=== PATIENT | female | born 1975 | race Caucasian/White ===

== ENCOUNTER → 2018-05-05 17:23 | Outpatient (CLI) | payer OTHER, SELFPAY ==
--- NOTE | 2018-05-05 17:25 | BI_ITS ---
MAMMOGRAPHY - BILATERAL SCREENING REASON FOR EXAM: Female, 42 years old. Routine annual screening examination. PERTINENT HISTORY: Non-contributory. TECHNIQUE: Digital bilateral breast arun (3D mammographic acquisition) in the CC and MLO projections. 2-D mediolateral oblique (MLO) and craniocaudad (CC) views of both breasts were obtained. CAD: Full Field Digital Mammography with Computer Added Detection was performed. COMPARISON: None. Baseline examination. FINDINGS: Breast Composition: The breasts are extremely dense, which lowers the sensitivity of mammography. There are no dominant masses or suspicious calcifications. No other significant abnormalities are identified. BI/SCREENING MAMM (CAD), BILAT IMPRESSION: Negative screening mammogram. Yearly followup mammogram recommended. (A) ASSESSMENT CATEGORY: BIRADS Category 1: Negative. A letter regarding these results will be sent to the patient by the facility within 30 days. Approximately 10% of breast cancers are not detected by mammography. A normal mammogram should not delay biopsy of a clinically suspicious abnormality. [id number] Electronically Signed: Sean Haynes MD at 8:01 EDT Tel [phone], Service support ,
== END ==
PROVIDERS: Family Provider Family Medicine; PCP Family Medicine; Visit Provider Obstetrics & Gynecology Gynecology
DX: Z12.31 Encounter for screening mammogram for malignant neoplasm of breast (principal)
CPT/HCPCS: 77063; 77067

== ENCOUNTER → 2019-05-12 11:12 | Outpatient (CLI) | payer OTHER, SELFPAY ==
--- NOTE | 2019-05-12 11:16 | BI_ITS ---
MAMMOGRAPHY - BILATERAL SCREENING - CAD and KAYE IMAGES REASON FOR EXAM: Female, 43 years old. Routine annual screening examination. PERTINENT HISTORY: Non-contributory. TECHNIQUE: Digital examination. Mediolateral oblique (MLO) and craniocaudad (CC) views of both breasts were obtained. CAD: CAD was performed on this study. Kaye images were reviewed. COMPARISON: Mammogram dated 05/05/2018 FINDINGS: Breast Composition: The breasts are extremely dense, which lowers the sensitivity of mammography. There are no suspicious masses, suspicious cluster of microcalcifications, architectural distortion or secondary sign of malignancy identified in either breast. Focal fibroglandular densities are noted bilaterally. Stable focal fibroglandular densities are seen. No other significant abnormalities are identified. CAD and Kaye were reviewed. BI/SCREEN MAMM (CAD) W/KAYE BILAT IMPRESSION: Stable bilateral screening mammogram. ASSESSMENT CATEGORY: BIRADS Category 2: Benign. A letter regarding these results will be sent to the patient by the facility within 30 days. FOLLOW UP RECOMMENDATION: Yearly follow up mammogram recommended. (A) Approximately 10% of breast cancers are not detected by mammography. A normal mammogram should not delay biopsy of a clinically suspicious abnormality. [id number] Electronically Signed: Samantha Kessler DO at 13:00 EDT Tel , Service support ,
== END ==
PROVIDERS: Family Provider Family Medicine; PCP Family Medicine; Referring Provider Obstetrics & Gynecology Gynecology; Visit Provider Obstetrics & Gynecology Gynecology
DX: Z12.31 Encounter for screening mammogram for malignant neoplasm of breast (principal)
CPT/HCPCS: 77063; 77067

== ENCOUNTER → 2020-02-29 15:55 | Outpatient (CLI) | payer OTHER, SELFPAY ==
[2020-02-29 18:06] LABS: T4 Free Direct 0.93 ng/dL (0.76-1.46); Thyroid Stim Hormone (TSH) 1.74 uIU/mL (0.358-3.74)
[2020-03-04 16:22] LABS: Thyroglobulin Antibody < 1.0 IU/mL (0.0-0.9); Thyroid Peroxidase AB < 9 IU/mL (0-34)
== END ==
PROVIDERS: PCP Family Medicine; Referring Provider Family Medicine; Visit Provider Family Medicine
DX: E01.0 Iodine-deficiency related diffuse (endemic) goiter (principal)
CPT/HCPCS: 36415; 84439; 84443; 86376; 86800

== ENCOUNTER → 2020-03-14 09:53 | Outpatient (CLI) | payer OTHER, SELFPAY ==
--- NOTE | 2020-03-14 09:55 | US_ITS ---
STUDY: THYROID ULTRASOUND REASON FOR EXAM: Female, 44 years old. THYROMEGALY TECHNIQUE: Ultrasound evaluation of the thyroid was performed with real-time and static almonte-scale imaging. COMPARISON: None. FINDINGS: RIGHT LOBE: The right lobe of the thyroid gland is enlarged and measures 5.4 cm x 1.9 cm x 1.1 cm. There is a homogeneous echotexture. There is a 2 mm x 3 mm x 2 mm colloid cyst in the upper pole. LEFT LOBE: The left lobe of the thyroid gland measures 4.7 cm x 1.6 cm x 1.1 cm. There is a homogeneous echotexture. There is a 2 mm x 2 mm x 1 mm colloid cyst in the lower pole. ISTHMUS: The isthmus measures 3.0 mm. The regional lymph nodes are normal. US/Thyroid IMPRESSION: Enlarged right lobe of the thyroid. Small colloid cysts seen in both lobes. Electronically Signed: Sean Haynes, at 15:21 EDT , Service support ,
== END ==
PROVIDERS: PCP Family Medicine; Referring Provider Family Medicine; Visit Provider Family Medicine
DX: E01.0 Iodine-deficiency related diffuse (endemic) goiter (principal)
CPT/HCPCS: 76536

== ENCOUNTER → 2020-06-12 08:10 | Outpatient (CLI) | payer OTHER, SELFPAY ==
--- NOTE | 2020-06-12 08:13 | BI_ITS ---
MAMMOGRAPHY - BILATERAL SCREENING REASON FOR EXAM: Female, 45 years old. Routine annual screening examination. PERTINENT HISTORY: Non-contributory. TECHNIQUE: Digital bilateral breast kaye (3D mammographic acquisition) in the CC and MLO projections. 2-D mediolateral oblique (MLO) and craniocaudad (CC) views of both breasts were obtained. CAD: Full Field Digital Mammography with Computer Added Detection was performed. COMPARISON: Comparison is made with prior study dated 05/12/2019 and 05/05/2018. FINDINGS: Breast Composition: The breasts are extremely dense, which lowers the sensitivity of mammography. There are no dominant masses or suspicious calcifications. No other significant abnormalities are identified. There has been no significant change since the prior study. BI/SCREEN MAMM (CAD) W/KAYE BILAT IMPRESSION: Stable bilateral screening mammogram. Yearly follow-up mammogram recommended. (A) ASSESSMENT CATEGORY: BIRADS Category 1: Negative. A letter regarding these results will be sent to the patient by the facility within 30 days. Approximately 10% of breast cancers are not detected by mammography. A normal mammogram should not delay biopsy of a clinically suspicious abnormality. [id number] Electronically Signed: Sean Haynes, at 9:34 EDT , Service support ,
== END ==
PROVIDERS: PCP Family Medicine; Referring Provider Family Medicine; Visit Provider Family Medicine
DX: Z12.31 Encounter for screening mammogram for malignant neoplasm of breast (principal)
CPT/HCPCS: 77063; 77067

== ENCOUNTER → 2021-06-17 11:49 | Outpatient (CLI) | payer OTHER, SELFPAY ==
--- NOTE | 2021-06-17 11:52 | BI_ITS ---
MAMMOGRAPHY - BILATERAL SCREENING REASON FOR EXAM: Female, 46 years old. Routine annual screening examination. PERTINENT HISTORY: Non-contributory. TECHNIQUE: Digital bilateral breast akye (3D mammographic acquisition) in the CC and MLO projections. 2-D mediolateral oblique (MLO) and craniocaudad (CC) views of both breasts were obtained. CAD: Full Field Digital Mammography with Computer Added Detection was performed. COMPARISON: Comparison is made with prior study dated 06/12/2020 and 05/12/2019. FINDINGS: Breast Composition: The breasts are extremely dense, which lowers the sensitivity of mammography. There are no dominant masses or suspicious calcifications. No other significant abnormalities are identified. There has been no significant change since the prior study. BI/SCRN MAMM (CAD)W/KAYE BILAT IMPRESSION: Stable bilateral screening mammogram. Yearly follow-up mammogram recommended. (A) ASSESSMENT CATEGORY: BIRADS Category 1: Negative. A letter regarding these results will be sent to the patient by the facility within 30 days. Approximately 10% of breast cancers are not detected by mammography. A normal mammogram should not delay biopsy of a clinically suspicious abnormality. [id number] Electronically Signed: Sean Haynes MD at 13:03 EDT , Service support ,
== END ==
PROVIDERS: PCP Family Medicine; Referring Provider Obstetrics & Gynecology Gynecology; Visit Provider Obstetrics & Gynecology Gynecology
DX: Z12.31 Encounter for screening mammogram for malignant neoplasm of breast (principal)
CPT/HCPCS: 77063; 77067

== ENCOUNTER → 2022-06-30 | Outpatient (CLI) | payer OTHER, SELFPAY ==
--- NOTE | 2022-06-30 12:22 | BI_ITS ---
MAMMOGRAPHY - BILATERAL SCREENING REASON FOR EXAM: Female, 47 years old. Routine annual screening examination. PERTINENT HISTORY: Non-contributory. TECHNIQUE: Digital bilateral breast kaye (3D mammographic acquisition) in the CC and MLO projections. 2-D mediolateral oblique (MLO) and craniocaudad (CC) views of both breasts were obtained. CAD: Full Field Digital Mammography with Computer Added Detection was performed. COMPARISON: Comparison is made with prior study 06/17/2021 and 06/12/2020. FINDINGS: Breast Composition: The breasts are extremely dense, which lowers the sensitivity of mammography. There are no dominant masses or suspicious calcifications. No other significant abnormalities are identified. There has been no significant change since the prior study. BI/SCRN MAMM (CAD)W/KAYE BILAT IMPRESSION: Stable bilateral screening mammogram. Yearly follow-up mammogram recommended. (A) ASSESSMENT CATEGORY: BIRADS Category 1: Negative. A letter regarding these results will be sent to the patient by the facility within 30 days. Approximately 10% of breast cancers are not detected by mammography. A normal mammogram should not delay biopsy of a clinically suspicious abnormality. [id number] Electronically Signed: Sean Haynes MD at 13:48 EST ,
== END | disposition home or self-care (01) ==
LOC: OPBI 12:20
PROVIDERS: PCP Family Medicine; Referring Provider Obstetrics & Gynecology Gynecology; Visit Provider Obstetrics & Gynecology Gynecology
DX: Z12.31 Encounter for screening mammogram for malignant neoplasm of breast (principal)
CPT/HCPCS: 77063; 77067

== ENCOUNTER → 2023-07-02 | Outpatient (CLI) | payer OTHER, SELFPAY ==
--- NOTE | 2023-07-02 07:53 | BI_ITS ---
MAMMOGRAPHY - BILATERAL SCREENING REASON FOR EXAM: Female, 48 years old. Routine annual screening examination. PERTINENT HISTORY: Non-contributory. TECHNIQUE: Digital bilateral breast kaye (3D mammographic acquisition) in the CC and MLO projections. 2-D mediolateral oblique (MLO) and craniocaudad (CC) views of both breasts were obtained. CAD: Full Field Digital Mammography with Computer Added Detection was performed. COMPARISON: Comparison is made with prior study dated June 30, 2022 and June 17, 2021. FINDINGS: Breast Composition: The breasts are extremely dense, which lowers the sensitivity of mammography. There are no dominant masses or suspicious calcifications. No other significant abnormalities are identified. There has been no significant change since the prior study. BI/SCRN MAMM (CAD)W/KAYE BILAT IMPRESSION: Stable bilateral screening mammogram. Yearly follow-up mammogram recommended. (A) ASSESSMENT CATEGORY: BIRADS Category 1: Negative. A letter regarding these results will be sent to the patient by the facility within 30 days. Approximately 10% of breast cancers are not detected by mammography. A normal mammogram should not delay biopsy of a clinically suspicious abnormality. [id number] Electronically Signed: Sean Haynes MD at 9:55 EST ,
== END | disposition home or self-care (01) ==
LOC: OPBI 07:51
PROVIDERS: PCP Family Medicine; Referring Provider Obstetrics & Gynecology Gynecology; Visit Provider Obstetrics & Gynecology Gynecology
DX: Z12.31 Encounter for screening mammogram for malignant neoplasm of breast (principal)
CPT/HCPCS: 77063; 77067

== ENCOUNTER → 2024-02-04 | Outpatient (CLI) | payer OTHER, SELFPAY ==
[2024-02-04 08:40] LABS: Cholesterol 207 mg/dL (200); High Density Lipoprotein 67 mg/dL; Triglycerides 137 mg/dL; Very Low Density Lipoprotein 27 mg/dL (5-40)
== END | disposition home or self-care (01) ==
LOC: LAB 07:41
PROVIDERS: PCP Family Medicine; Referring Provider Family Medicine; Visit Provider Family Medicine
DX: E78.1 Pure hyperglyceridemia (principal)
CPT/HCPCS: 36415; 80061

== ENCOUNTER → 2024-07-07 | Outpatient (CLI) | payer OTHER, SELFPAY | END | disposition home or self-care (01) | LOC: OPBI 13:12 | PROVIDERS: PCP Family Medicine; Referring Provider Family Medicine; Visit Provider Family Medicine | DX: Z12.31 Encounter for screening mammogram for malignant neoplasm of breast (principal) | CPT/HCPCS: 77063; 77067 ==

== ENCOUNTER → 2025-03-14 | Outpatient (CLI) | payer OTHER, SELFPAY ==
--- OUTSIDE RECORDS SUMMARY | 2025-03-15 11:49 | XMS RPT_ITS | CCD ---
Author Organization [facility] Care Team Providers Care Visual Manager Name Role Phone Austin TAPIAThao Jessy Unavailable Now Nurse Unavailable Unavailable Now Nurse Unavailable Unavailable Now Nurse Unavailable Unavailable Assessment, Health Risk Referring Unavaila ble Assessment, Health Risk Attending Unavaila ble Janet Klein Primary Care Unavailable Janet Klein Primary Care Unavailable Janet Klein Referring Unavailable Janet Klein Attending Unavailable Janet Klein Primary Care Unavailable Janet Klein Referring Unavailable Janet Klein Attending Unavailable JANET KLEIN MD Primary Care Physician [phone] JANET KLEIN MD Primary Care Unavailable BRITTANI PRASAD MD Attending Unavailable Medications Current Medications Medication Drug Class(es) Dates Sig (Normalized) Sig (Original) Multivitamin preparation (1 source) Start: 12-17-2020 take 1 tablet by mouth once daily Multivitamin Dose = 1 tab(s), Oral, Daily, 0 Refill(s) Start Date: 12/17/20 Status: Ordered Completed/Discontinued Medications Medication Drug Class(es) Dates Sig (Normalized) Sig (Original) azithromycin 250 mg oral tablet (4 sources) Macrolide Antimicrobial Start: 12-24-2016 AZITHROMYCIN 250 MG TABS 2 tablets on day 1, then 1 tablet daily on days 2 through 5 AZITHROMYCIN [id number] Khurram BETTENCOURT benzonatate 200 mg oral capsule (4 sources) Non-narcotic Antitussive Start: 12-24-2016 BENZONATATE 200 MG CAPS 1 capsule 3 times a day as needed for cough BENZONATATE [id number] Khurram BETTENCOURT {24 (drospirenone 3 MG / Ethinyl Estradiol 0.02 MG Oral Tablet) / 4 (Inert Ingredients 1 MG Oral Tablet) } Pack [Adeola 28 Day] (2 sources) Progestin, Estrogen Start: 07-25-2024 take 1 tablet by mouth once daily Adeola 3 mg-0.02 mg oral tablet Dose = 1 tab(s), Oral, Daily, # 84 tab(s), 4 Refill(s), Pharmacy: [facility], Well woman exam Screening for cervical cancer, 139, cm, 07/25/24 9:45:00 EST, Height, kg, 07/25/24 9:45:00 EST, Dosing Weight Start Date: 07/25/24 Status: Ordered Start: 06-08-2023 take 1 tablet by felipe th once daily Adeola 3 mg-0.02 mg oral tablet Dose = 1 tab(s), Oral, Daily, # 84 tab(s), 3 Refill(s), Pharmacy: [facility], 172, cm, 04/26/23 10:02:00 EDT, Height, kg, 04/26/23 10:02:00 EDT, Dosing Weight Start Date: 06/08/23 Status: Ordered NORETHIN-ETH ESTRAD-FE BIPHAS (2 sources) Estrogen Start: 12-24-2016 LO LOESTRIN FE 1 MG-10 MCG / 10 MCG TABS as directed NORETHIN-ETH ESTRAD-FE BIPHAS [id number] Khurram BETTENCOURT NORETHIN-ETH ESTRAD-FE BIPHAS (2 sources) Estrogen Start: 12-24-2016 LO LOESTRIN FE 1 MG-10 MCG / 10 MCG TABS as directed NORETHIN-ETH ESTRAD-FE BIPHAS [id number] Khurram BETTENCOURT Problems Active Problems Problem Classification Problem Date Documented Da te Episodic/Chronic Disorders of lipid metabolism (1 source) Pure hyperglyceridemia ; Translations: [Pure hyperglyceridemia ] Onset: 02-09-2024 Chronic Menopausal disorders (3 sources) Premature ovarian failure; Translations: [Other primary ovarian failure] Onset: 07-25-2024 02-02-2022 Chronic Other screening for suspected conditions (not mental disorders or infectious disease) (3 sources) Encounter for screening mammogram for malignant neoplasm of breast; Translations: [Encounter for screening for malignant neoplasm of cervix] Onset: 07-17-2024 Episodic Viral infection (2 sources) Disease caused by 2019-nCoV; Translations: [COVID-19] 12-14-2021 Episodic Past or Other Problems Problem Classification Problem Date Documented Da te Episodic/Chronic Chronic obstructive pulmonary disease and bronchiectasis (4 sources) Bronchitis; Translations: [Bronchitis, not specified as acute or chronic] Onset: 12-24-2016 12-24-2016 Episodic Other upper respiratory infections (4 sources) Pharyngitis; Translations: [Acute pharyngitis, unspecified] Onset: 12-24-2016 12-24-2016 Episodic Results Test Name Value Interpretation Reference Range Facility [facility] Cytology Reporton 2023 Histologic Aide Cytology Report . Pathology Reports Accession: Collected Date/Time: Received Date/Time: Pathologist: [id number] 07/25/2024 10:33 EST 07/25/2024 18:00 EST Histologic Aide Cytology Report SPECIMEN: Specimen Description: Liquid Prep w/ HPV Specimen: Cervical/Endocervical Screening or Diagnostic: Screening RELEVANT HISTORY: LMP: oligomenorrhea on OCPS SPECIMEN ADEQUACY: SATISFACTORY FOR EVALUATION Endocervical/Transform ational zone component absent/insufficient INTERPRETATION/RESULTS : NEGATIVE FOR INTRAEPITHELIAL LESION OR MALIGNANCY HIGH RISK HPV TESTING: Event Code Result HPV Interp See Interp HPVN HPV Interp Text: High Risk HPV Typing: NEGATIVE HPV types 16, 18, 31, 33, 35, 39, 45, 51, 52, 56, 58, 59, 66 and 68 DNA were undetectable or below the pre-set threshold. The yared High-Risk HPV DNA Test is not intended for use as a screening device for Pap normal women under age 30 and is not intended to substitute for regular Pap screening. The yared High-Risk HPV DNA Test is designed to augment existing methods for the detection of cervical disease and should be used in conjunction with clinical information derived from other diagnostic and screening tests, physical examinations and full medical history in accordance with appropriate patient management procedures. NOTE: A negative result does not preclude the presence of HPV infection because results depend on adequate specimen collection, absence of inhibitors and sufficient DNA to be detected. As of: 07/28/24 14:40 EST COMMENT: This Pap Test was successfully processed and evaluated with the assistance of the [employer] ThinPrep Test Imaging System. Pathology Reports Accession: Collected Date/Time: Received Date/Time: Pathologist: [id number] 07/25/2024 10:33 EST 07/25/2024 18:00 EST Electronically Signed by Pathology report verified by [facility] Screened by: [place] Electronically signed by Helga HORTA (ASCP) Sign-Out Date: 07/28/2024 14:40 Performing Lab: [facility], [address] [place] [address] Pathology Dept Disclaimer The Pap test is a screening test for cervical cancer. As evidenced by published data, it is subject to both inherent false negative and false positive results. Your patient's results should be interpreted in context with pertinent clinical history including gynecological examination. Normal [facility] HPVon 07-28-2024 HPV Interp Normal See Interp HPVN [facility] Comment on above: Order Comment: Order placed by AP_HPV_ORDER rule from [id number] Result Comment: High Risk HPV Typing: NEGATIVE HPV types 16, 18, 31, 33, 35, 39, 45, 51, 52, 56, 58, 59, 66 and 68 DNA were undetectable or below the pre-set threshold. The yared High-Risk HPV DNA Test is not intended for use as a screening device for Pap normal women under age 30 and is not intended to substitute for regular Pap screening. The yared High-Risk HPV DNA Test is designed to augment existing methods for the detection of cervical disease and should be used in conjunction with clinical information derived from other diagnostic and screening tests, physical examinations and full medical history in accordance with appropriate patient management procedures. NOTE: A negative result does not preclude the presence of HPV infection because results depend on adequate specimen collection, absence of inhibitors and sufficient DNA to be detected. See Interp HPVN Performed By: #### H PV #### [place] [address] HPV Source Cervix Normal [facility] Comment on above: Order Comment: Order placed by AP_HPV_ORDER rule from [id number] Performed By: #### H PV #### [place] [address] LABORATORYOrdered By: Sommer Galvan on 07-25-2024 HPV Interp High Risk HPV Typing : NEGATIVEHPV types 16, 18, 31, 33, 35, 39, 45, 51, 52, 56, 58, 59, 66 and 68 DNA wereundetectable or below the pre-set threshold.The yared High-Risk HPV DNA Test is not intended for use as a screening device forPap normal women under age 30 and is not intended to substitute for regular Papscreening.The yared High-Risk HPV DNA Test is designed to augment existing methods for thedetection of cervical disease and should be used in conjunction with clinicalinformation derived from other diagnostic and screening tests, physical examinationsand full medical history in accordance with appropriate patient managementprocedures.N OTE: A negative result does not preclude the presence of HPV infection because resultsdepend on adequate specimen collection, absence of inhibitors and sufficientDNA to be detected. Normal See Interp HPVN Auto Viro/Sero SS Specimen source Nom (Unsp spec) Cervix (07/25/24 10:33 AM) Normal AH Auto Viro/Sero SS SCRN MAMM (CAD)W/KAYE BILATo n 07-07-2024 SCRN MAMM (CAD)W/KAYE BILAT [facility] [address] [place] [address] [id number] SCRN MAMM (CAD)W/KAYE BILAT MR#: [id number] Acct: [id number] Name: BALDOMERO ARREOLA Rep #: [id number] : 1975 F 49 From: Sean gu MD PCP: Dr. Janet Klein MD Status: [facility] Study: SCRN MAMM (CAD)W/KAYE BILAT Date of Exam: 06/17 10/09 Exam# [id number] Ordering Dr: Janet Klein MD [id number] MAMMOGRAPHY - BILATERAL SCREENING REASON FOR EXAM: Female, 49 years old. Routine annual screening examination. PERTINENT HISTORY: Non-contributory. TECHNIQUE: Digital bilateral breast kaye (3D mammographic acquisition) in the CC and MLO projections. 2-D mediolateral oblique (MLO) and craniocaudad (CC) views of both breasts were obtained. CAD: Full Field Digital Mammography with Computer Added Detection was performed. COMPARISON: Comparison is made with prior study dated July 02, 2023 and June 30, 2022. FINDINGS: Breast Composition: The breasts are extremely dense, which lowers the sensitivity of mammography. There are no dominant masses or suspicious calcifications. No other significant abnormalities are identified. There has been no significant change since the prior study. BI/SCRN MAMM (CAD)W/KAYE BILAT IMPRESSION: Stable bilateral screening mammogram. Yearly follow-up mammogram recommended. (A) ASSESSMENT CATEGORY: BIRADS Category 1: Negative. A letter regarding these results will be sent to the patient by the facility within 30 days. Approximately 10% of breast cancers are not detected by mammography. A normal mammogram should not delay biopsy of a clinically suspicious abnormality. [id number] Electronically Signed: Sean Haynes MD at 14:20 EST , CC: Dr. Janet Klein MD Smutter: Signed Normal [facility] Lipid Profileon 02-04-2024 Cholesterol [Mass/Vol] 207 mg/dL High 200 [facility] Comment on above: Order Comment: Order Date: 01/28/24 Order Info: [id number] - LIPID Result Comment: <200 mg/dL Desirable 200-240 mg/dL Borderline >240 mg/dL High Risk Performed By: #### L 500.4100 #### [facility] [place], [address] Cholesterol in HDL [Mass/Vol] 67 mg/dL Normal [facility] Comment on above: Order Comment: Order Date: 01/28/24 Order Info: [id number] - LIPID Result Comment: The drugs N-Acetylcysteine and Metamizole may falsely depress this assay. Reference Range HDL <40 mg/dL Low HDL Cholesterol HDL >or= 60 mg/dL High HDL Cholesterol Performed By: #### L 500.4100 #### [facility] [address] [place], [address] Cholesterol in LDL [Mass/Vol] 113 mg/dL Normal 0-130 [facility] Comment on above: Order Comment: Order Date: 01/28/24 Order Info: [id number] - LIPID Performed By: #### L 500.4100 #### [facility] [address] [place], [address] Cholesterol in VLDL [Mass/Vol] 27 mg/dL Normal 5-40 [facility] Comment on above: Order Comment: Order Date: 01/28/24 Order Info: [id number] - LIPID Performed By: #### L 500.4100 #### [facility] [address] [place], [address] Triglyceride [Mass/Vol] 137 mg/dL Normal [facility] Comment on above: Order Comment: Order Date: 01/28/24 Order Info: [id number] - LIPID Result Comment: The drugs N-Acetylcysteine and Metamizole may falsely depress this assay. Serum Triglycerides Reference Interval Normal <150 mg/dL Borderline high 150 - 199 mg/dL High 200 - 499 mg/dL Very High > or = 500 mg/dL Performed By: #### L 500.4100 #### [facility] [address] [place], [address] CBC, Employeeon 01-26-2024 Absolute Lymph 1.70 X10 3/uL Normal 0.83-4.51 [facility] Comment on above: Performed By: #### L 500.2900, L100.0200, L400.0100 #### [facility] [address] [place], [address] Absolute Neut 2.7 X10 3/uL Normal 2.0-7.7 [facility] Comment on above: Performed By: #### L 500.2900, L100.0200, L400.0100 #### [facility] [address] [place], [address] Basophils/100 WBC (Bld) 0.8 % Normal 0-1 [facility] Comment on above: Performed By: #### L 500.2900, L100.0200, L400.0100 #### [facility] [address] [place], [address] Eosinophils/100 WBC (Bld) 3.9 % Normal 0-5 [facility] Comment on above: Performed By: #### L 500.2900, L100.0200, L400.0100 #### [facility] [address] [place], [address] Erythrocyte distribution width (RBC) [Ratio] 11.8 % Normal 11.6-14.6 [facility] Comment on above: Performed By: #### L 500.2900, L100.0200, L400.0100 #### [facility] [address] [place], [address] Hematocrit (Bld) [Volume fraction] 38.2 % Normal 37-47 [facility] Comment on above: Performed By: #### L 500.2900, L100.0200, L400.0100 #### [facility] [address] [place], [address] Hemoglobin (Bld) [Mass/Vol] 12.6 g/dL Normal 12.0-15.0 [facility] Comment on above: Performed By: #### L 500.2900, L100.0200, L400.0100 #### [facility] [address] [place], [address] Lymphocytes/100 WBC (Bld) 32.9 % Normal 19-41 [facility] Comment on above: Performed By: #### L 500.2900, L100.0200, L400.0100 #### [facility] [address] [place], [address] MCH (RBC) [Entitic mass] 31.3 pg Normal 27.0-32.0 [facility] Comment on above: Performed By: #### L 500.2900, L100.0200, L400.0100 #### [facility] [address] [place], [address] MCHC (RBC) [Mass/Vol] 33.0 g/dL Normal 32-36 [facility] Comment on above: Performed By: #### L 500.2900, L100.0200, L400.0100 #### [facility] [address] [place], [address] MCV (RBC) [Entitic vol] 95.0 fL Normal 81-99 [facility] Comment on above: Performed By: #### L 500.2900, L100.0200, L400.0100 #### [facility] [address] [place], [address] Monocytes/100 WBC (Bld) 11.0 % High 0-10 [facility] Comment on above: Performed By: #### L 500.2900, L100.0200, L400.0100 #### [facility] [address] [place], [address] Neutrophils/100 WBC (Bld) 51.2 % Normal 47-70 [facility] Comment on above: Performed By: #### L 500.2900, L100.0200, L400.0100 #### [facility] [address] [place], [address] NRBC # 0.00 10 3/uL Normal 0-5 [facility] Comment on above: Performed By: #### L 500.2900, L100.0200, L400.0100 #### [facility] [address] [place], [address] Nucleated RBC (Bld) [#/Vol] 0 10*3/uL Normal 0-5 [facility] Comment on above: Performed By: #### L 500.2900, L100.0200, L400.0100 #### [facility] [address] [place], [address] Platelet mean volume (Bld) [Entitic vol] 11.0 fL Normal 6.2-12.0 [facility] Comment on above: Performed By: #### L 500.2900, L100.0200, L400.0100 #### [facility] [address] [place], [address] Platelets (Bld) [#/Vol] 229 10*3/uL Normal 150-450 [facility] Comment on above: Performed By: #### L 500.2900, L100.0200, L400.0100 #### [facility] [address] [place], [address] RBC (Bld) [#/Vol] 4.02 10*6/uL Low 4.2-5.4 [facility] Comment on above: Performed By: #### L 500.2900, L100.0200, L400.0100 #### [facility] [address] [place], [address] RDW SD 40.8 fl Normal 35.1-43.9 [facility] Comment on above: Performed By: #### L 500.2900, L100.0200, L400.0100 #### [facility] [address] [place], [address] WBC (Bld) [#/Vol] 5.2 10*3/uL Normal 4.4-11.0 [facility] Comment on above: Performed By: #### L 500.2900, L100.0200, L400.0100 #### [facility] [address] [place], [address] Employee Profileon 4 Albumin [Mass/Vol] 3.5 g/dL Normal 3.2-5.0 [facility] Comment on above: Performed By: #### L 500.2900, L100.0200, L400.0100 #### [facility] [address] [place], [address] Albumin/Globulin [Mass ratio] 1.0 {ratio} Normal 0.9-2.4 [facility] Comment on above: Performed By: #### L 500.2900, L100.0200, L400.0100 #### [facility] [address] [place], [address] ALK P 133 U/L High 45-117 [facility] Comment on above: Performed By: #### L 500.2900, L100.0200, L400.0100 #### [facility] [address] [place], [address] ALT [Catalytic activity/Vol] 22 U/L Normal 13-56 [facility] Comment on above: Performed By: #### L 500.2900, L100.0200, L400.0100 #### [facility] [address] [place], [address] AST [Catalytic activity/Vol] 27 U/L Normal 15-37 [facility] Comment on above: Performed By: #### L 500.2900, L100.0200, L400.0100 #### [facility] [address] [place], [address] Bilirubin [Mass/Vol] 0.20 mg/dL Normal 0.20-1.00 [facility] Comment on above: Result Comment: For patients on eltrombopag therapy, use of Dimension Mchenry TBIL is not recommended. Performed By: #### L 500.2900, L100.0200, L400.0100 #### [facility] [address] [place], [address] Bilirubin.direct [Mass/Vol] 0.08 mg/dL Normal 0.00-0.30 [facility] Comment on above: Performed By: #### L 500.2900, L100.0200, L400.0100 #### [facility] [address] [place], [address] BUN/CRE 14.3 RATIO Normal 10-20 [facility] Comment on above: Performed By: #### L 500.2900, L100.0200, L400.0100 #### [facility] [address] [place], [address] CA,Total 9.0 mg/dL Normal 8.5-10.1 [facility] Comment on above: Performed By: #### L 500.2900, L100.0200, L400.0100 #### [facility] [address] [place], [address] Chloride [Moles/Vol] 107 mmol/L Normal 98-107 [facility] Comment on above: Performed By: #### L 500.2900, L100.0200, L400.0100 #### [facility] [address] [place], [address] CHOL:HDL 6.30 Normal [facility] Comment on above: Performed By: #### L 500.2900, L100.0200, L400.0100 #### [facility] [address] [place], [address] Cholesterol [Mass/Vol] 252 mg/dL High 200 [facility] Comment on above: Result Comment: <200 mg/dL Desirable 200-240 mg/dL Borderline >240 mg/dL High Risk Performed By: #### L 500.2900, L100.0200, L400.0100 #### [facility] [address] [place], [address] Cholesterol in HDL [Mass/Vol] 40 mg/dL Normal [facility] Comment on above: Result Comment: The drugs N-Acetylcysteine and Metamizole may falsely depress this assay. Reference Range HDL <40 mg/dL Low HDL Cholesterol HDL >or= 60 mg/dL High HDL Cholesterol Performed By: #### L 500.2900, L100.0200, L400.0100 #### [facility] [address] [place], [address] CO2 [Moles/Vol] 25.0 mmol/L Normal 21.0-32.0 [facility] Comment on above: Performed By: #### L 500.2900, L100.0200, L400.0100 #### [facility] [address] [place], [address] Creatinine [Mass/Vol] 0.84 mg/dL Normal 0.55-1.02 [facility] Comment on above: Result Comment: The validity of the calculated GFR GFRAA in patients over 70 years has not been determined. Clinical correlation is essential. Performed By: #### L 500.2900, L100.0200, L400.0100 #### [facility] [address] [place], [address] EST GFR - AA 94 mL/min Normal >60 [facility] Comment on above: Result Comment: Afri can Algerian GFR Calc Performed By: #### L 500.2900, L100.0200, L400.0100 #### [facility] [address] [place], [address] GAP 7 Normal 5-15 [facility] Comment on above: Performed By: #### L 500.2900, L100.0200, L400.0100 #### [facility] [address] [place], [address] GFR/1.73 sq M.predicted among non-blacks MDRD (S/P/Bld) [Vol rate/Area] 78 mL/min/{1.73_m2} Normal >60 [facility] Comment on above: Result Comment: Non- GFR Calc Performed By: #### L 500.2900, L100.0200, L400.0100 #### [facility] [address] [place], [address] Globulin (S) [Mass/Vol] 3.4 g/dL Normal 2.2-4.2 [facility] Comment on above: Performed By: #### L 500.2900, L100.0200, L400.0100 #### [facility] [address] [place], [address] Glucose [Mass/Vol] 101 mg/dL Normal 74-106 [facility] Comment on above: Result Comment: Fast ing Glucose result from 100 to 125 mg/dL suggests IMPAIRED HOMEOSTASIS per A.D.A. criteria. Performed By: #### L 500.2900, L100.0200, L400.0100 #### [facility] [address] [place], [address] LDH 203 U/L Normal 84-246 [facility] Comment on above: Performed By: #### L 500.2900, L100.0200, L400.0100 #### [facility] [address] [place], [address] LDL TNP Normal 0-130 [facility] Comment on above: Performed By: #### L 500.2900, L100.0200, L400.0100 #### [facility] [address] [place], [address] Phosphate [Mass/Vol] 3.5 mg/dL Normal 2.5-4.9 [facility] Comment on above: Performed By: #### L 500.2900, L100.0200, L400.0100 #### [facility] [address] [place], [address] Potassium [Moles/Vol] 3.8 mmol/L Normal 3.5-5.1 [facility] Comment on above: Performed By: #### L 500.2900, L100.0200, L400.0100 #### [facility] Laboratory [address] [place], [address] Sodium [Moles/Vol] 139 mmol/L Normal 136-145 [facility] Comment on above: Performed By: #### L 500.2900, L100.0200, L400.0100 #### [facility] [address] [place], [address] T PROT 6.9 g/dL Normal 6.4-8.2 [facility] Comment on above: Performed By: #### L 500.2900, L100.0200, L400.0100 #### [facility] [address] [place], [address] Triglyceride [Mass/Vol] 489 mg/dL High [facility] Comment on above: Result Comment: The drugs N-Acetylcysteine and Metamizole may falsely depress this assay. TRIGLYCERIDE IS GREATER THAN 400 mg/dL. LDL RESULT IS INVALID AND WILL NOT BE REPORTED. Serum Triglycerides Reference Interval Normal <150 mg/dL Borderline high 150 - 199 mg/dL High 200 - 499 mg/dL Very High > or = 500 mg/dL Performed By: #### L 500.2900, L100.0200, L400.0100 #### [facility] [address] [place], [address] Urea nitrogen [Mass/Vol] 12 mg/dL Normal 7-18 [facility] Comment on above: Performed By: #### L 500.2900, L100.0200, L400.0100 #### [facility] Laboratory [address] [place], [address] URIC 4.8 mg/dL Normal 2.6-6.0 [facility] Comment on above: Result Comment: The drugs N-Acetylcysteine and Metamizole may falsely depress this assay. Performed By: #### L 500.2900, L100.0200, L400.0100 #### [facility] [address] [place], [address] VLDL TNP Normal 5-40 [facility] Comment on above: Performed By: #### L 500.2900, L100.0200, L400.0100 #### [facility] [address] [place], [address] Urinalysis, Employeeon 01-25 BILIRUBIN URINE Negative Normal Negative [facility] Comment on above: Performed By: #### L 500.2900, L100.0200, L400.0100 #### [facility] [address] [place], [address] Clarity (U) Clear Normal Clear [facility] Comment on above: Performed By: #### L 500.2900, L100.0200, L400.0100 #### [facility] [address] [place], [address] Color (U) Yellow Normal Yellow [facility] Comment on above: Performed By: #### L 500.2900, L100.0200, L400.0100 #### [facility] [address] [place], [address] GLUCOSE, UR Normal Normal Normal [facility] Comment on above: Performed By: #### L 500.2900, L100.0200, L400.0100 #### [facility] [address] [place], [address] KETONE UR Negative Normal Negative [facility] Comment on above: Performed By: #### L 500.2900, L100.0200, L400.0100 #### [facility] [address] [place], [address] LEUK ESTERASE 25 /ul Abnormal Negative [facility] Comment on above: Performed By: #### L 500.2900, L100.0200, L400.0100 #### [facility] [address] [place], [address] Nitrite Ql (U) Negative Normal Negative [facility] Comment on above: Performed By: #### L 500.2900, L100.0200, L400.0100 #### [facility] [address] [place], [address] OCCULT BLOOD-UR 25 /ul Abnormal Negative [facility] Comment on above: Performed By: #### L 500.2900, L100.0200, L400.0100 #### [facility] [address] [place], [address] pH UR 6.0 Normal 5.0 - 8.0 [facility] Comment on above: Performed By: #### L 500.2900, L100.0200, L400.0100 #### [facility] [address] [place], [address] PROT DIPSTX 100 mg/dl Abnormal Negative [facility] Comment on above: Performed By: #### L 500.2900, L100.0200, L400.0100 #### [facility] [address] [place], [address] SP.GR. DIPSTX 1.020 Normal 1.002-1.030 [facility] Comment on above: Performed By: #### L 500.2900, L100.0200, L400.0100 #### [facility] [address] [place], [address] UROBILI Normal Normal Normal [facility] Comment on above: Performed By: #### L 500.2900, L100.0200, L400.0100 #### [facility] [place], [address] HPVon 05-11-2019 HPV Interp Normal See Interp HPVN [facility] ([place]) Comment on above: Order Comment: Order placed by AP_HPV_ORDER rule from [id number] Result Comment: High Risk HPV Typing: NEGATIVE HPV types 16, 18, 31, 33, 35, 39, 45, 51, 52, 56, 58, 59, 66 and 68 DNA were undetectable or below the pre-set threshold. The yared High-Risk HPV DNA Test is not intended for use as a screening device for Pap normal women under age 30 and is not intended to substitute for regular Pap screening. The yared High-Risk HPV DNA Test is designed to augment existing methods for the detection of cervical disease and should be used in conjunction with clinical information derived from other diagnostic and screening tests, physical examinations and full medical history in accordance with appropriate patient management procedures. NOTE: A negative result does not preclude the presence of HPV infection because results depend on adequate specimen collection, absence of inhibitors and sufficient DNA to be detected. See [facility] HPVN Performed By: #### H PV #### [place] [address] HPV Source Cervix Normal [facility] ([place]) Comment on above: Order Comment: Order placed by AP_HPV_ORDER rule from [id number] Performed By: #### H PV #### [place] [id number] [facility] Cytology Reporton 2018 [facility] Cytology Report . Pathology Reports Accession: Collected Date/Time: Received Date/Time: Pathologist: [id number] 05/05/2019 12:35 EDT 05/05/2019 18:00 EDT [facility] Report SPECIMEN: Specimen Description: Liquid Prep w/ HPV Specimen: Cervical/Endocervical Screening or Diagnostic: Screening RELEVANT HISTORY: LMP: 01-20-17 Control: Yes [id number] SPECIMEN ADEQUACY: SATISFACTORY FOR EVALUATION ENDOCERVICAL/TRANSFORM ATIONAL ZONE COMPONENT ABSENT/INSUFFICIENT INTERPRETATION/RESULTS : NEGATIVE FOR INTRAEPITHELIAL LESION OR MALIGNANCY ADJUNCTIVE TESTING: HIGH RISK HPV DNA TESTING ORDERED, REPORT TO FOLLOW UNDER SEPARATE COVER COMMENT: This Pap Test was successfully processed and evaluated with the assistance of the [employer] Test Imaging System. Electronically Signed by Pathology report verified by [facility] Screened by: KK Electronically signed by Tatyana HORTA (ASCP) Sign-Out Date: 05/10/2019 11:36 Performing Lab: [facility], [address] [place] [address] Disclaimer The Pap test is a screening test for cervical cancer. As evidenced by published data, it is subject to both inherent false negative and false positive results. Your patient's results should be interpreted in context with pertinent clinical history including gynecological examination. Normal [facility] ([place]) Comment on above: Performed By: #### G YCR #### [place] [address] Microbiology: Culture, R/O S trep Aon 12-28-[address] [facility] Work Phone: Microbiology: (P) Culture, R /O Strep Aon 12-25-2016 GE use only - for [employer] import when terms are not otherwise specified . Invalid Interpretation Code [facility] Work Phone: Office Visit: UC: Bronchitis , pharyngitison 12-24-2016 Documentation of current medications (procedure) Done Invalid Interpretation Code [facility] Work Phone: Protein mass conc Done [facility] Work Phone: Tobacco smoking status NHIS Never [facility] Work Phone: Tobacco smoking status NHIS Never smoker [facility] Work Phone: Tobacco use HS Never smoker Invalid Interpretation Code [facility] Work Phone: Vital Signs Date Time Vital Sign Value Performing Clinician Nalini presley 12-24-2016 14:37-0400 BMI (Body Mass Index) 20.2 kg/m2 Thao Avila LPN [facility] Work Phone: 12-24-2016 14:37-0400 Body Temperature 98.6 [degF] Thao Avila LPN [facility] Work Phone: 12-24-2016 14:37-0400 BP Diastolic 76 mm[Hg] Thao Avila LPN [facility] Work Phone: 12-24-2016 14:37-0400 BP Systolic 108 mm[Hg] Thao Avila LPN [facility] Work Phone: 12-24-2016 14:37-0400 Height 170.18 cm Thao Avila LPN [facility] Work Phone: 12-24-2016 14:37-0400 Pulse (Heart Rate) 97 /min Thao Avila LPN [facility] Work Phone: 12-24-2016 14:37-0400 Pulse Oximetry 98 % Thao Avila LPN [facility] Work Phone: 12-24-2016 14:37-0400 Respiratory Rate 12 /min Thao Avila LPN [facility] Work Phone: 12-24-2016 14:37-0400 Weight 58.51 kg Thao Avila LPN [facility] Work Phone: Encounters Encounter Date Encounter Type Care Provider Facility Start: 07-25-2024 End: 07-29-2024 ambulatory JANET KLEIN MD Facility:[facility] Start: 07-25-2024 End: 07-29-2024 Outreach Lab BRITTANI PRASAD MD [facility] Start: 07-07-2024 End: 07-07-2024 ambulatory Janet Klein Facility:[facility] Start: 02-04-2024 End: 02-04-2024 ambulatory Janet Klein Facility:[facility] Start: 01-26-2024 ambulatory Health Risk Assessment Facility:[facility] Start: 07-02-2023 End: 07-02-2023 ambulatory [facility] Work Phone: Start: 07-02-2023 End: 07-02-2023 Patient encounter procedure [facility] Work Phone: Start: 06-30-2022 End: 06-30-2022 ambulatory [facility] Work Phone: Start: 06-30-2022 End: 06-30-2022 Patient encounter procedure [facility] Procedures Date Procedure Procedure Detail Performing Clinician Start: 07-02-2023 Screening mammography Start: 06-30-2022 Screening mammography Start: 12-24-2016 End: 12-24-2016 [facility] streptococcus group a Khurram BETTENCOURT Work Phone: Start: 12-24-2016 End: 12-24-2016 Rapid strep test Khurram BETTENCOURT Work Phone: section BRITTANI Bloom MD Ligation of fallopian tube A ALEXANDRA PRASAD MD Plan of Treatment Date Care Activity Detail Author Start: 12-24-2016 End: 12-24-2016 Appointment Appointment [facility] Work Phone: Start: 12-24-2016 End: 12-24-2016 Streptococcus.beta-hemol ytic [Presence] in Throat by Organism specific culture *Culture, R/O Strep A Swab [facility] Work Phone: Patient Education ACUTE%20BRONCHITIS [facility] Work Phone: Immunizations Immunization Date Immunization Notes Care Provider Karen snyder 06-03-2023 influenza, injectabl e, quadrivalent, preservative free [facility] 05-18-2022 influenza, injectabl e, quadrivalent, preservative free [facility] 05-18-2022 influenza, seasonal, injectable [facility] Work Phone: 06-27-2021 Covid (Moderna) [facility] 05-21-2021 influenza, injectabl e, quadrivalent, preservative free [facility] 05-21-2021 influenza, seasonal, injectable [facility] Work Phone: 09-18-2020 Covid (Moderna) [facility] 08-21-2020 Covid (Moderna) [facility] 05-14-2020 influenza, injectabl e, quadrivalent, preservative free [facility] 05-14-2020 influenza, seasonal, injectable [facility] Work Phone: 05-11-2019 influenza, injectabl e, quadrivalent, preservative free [facility] 05-11-2019 influenza, seasonal, [facility] Work Phone: 05-30-2018 influenza, injectabl e, quadrivalent, preservative free [facility] 05-30-2018 influenza, seasonal, injectable [facility] Work Phone: 05-12-2017 influenza, injectabl e, quadrivalent, preservative free [facility] 05-12-2017 influenza, seasonal, [facility] Work Phone: 05-15-2016 influenza, injectabl e, quadrivalent, preservative free [facility] 05-15-2016 influenza, seasonal, injectable [facility] Work Phone: 05-16-2015 influenza, injectabl e, quadrivalent, preservative free [facility] 05-16-2015 influenza, seasonal, injectable [facility] Work Phone: 05-16-2014 influenza, injectabl e, quadrivalent, preservative free [facility] 05-16-2014 influenza, seasonal, injectable [facility] Work Phone: 06-15-2013 Influenza virus vaccine [facility] Payers Date Payer Category Payer Unknown [id number] 2024 Self-pay [id number] 2016 Unknown [id number] 1975 Unknown [id number] [id number] Unknown [id number] [id number] [id number] Unknown [id number] [id number] [id number] Unknown [id number] 2.16.8 [id number] Social History Date Type Detail [facility] Work Phone: Start: 1975 Sex Assigned At Female [facility] Start: 12-16-2020 Tobacco smoking status Never s moked tobacco (finding) [facility] Clinical Notes 07-28-2024 Note Date & Type Note Facility 07-28-2024 Note This Pap Test was successfully processed and evaluated with the assistance of the [employer] ThinPrep Test Imaging System. [facility] 07-28-2024 Note This Pap Test was successfully processed and evaluated with the assistance of the [employer] Test Imaging System. [facility] 07-28-2024 Note This Pap Test was successfully processed and evaluated with the assistance of the [employer] Test Imaging System. [facility] 07-28-2024 Note This Pap Test was successfully processed and evaluated with the assistance of the [employer] Test Imaging System. [facility] 07-28-2024 Note This Pap Test was successfully processed and evaluated with the assistance of the [employer] Test Imaging System. [facility] 07-28-2024 Note This Pap Test was successfully processed and evaluated with the assistance of the [employer] Test [facility] System. [facility] 07-28-2024 Note This Pap Test was successfully processed and evaluated with the assistance of the [employer] Test Imaging System. [facility] 07-28-2024 Note This Pap Test was successfully processed and evaluated with the assistance of the [employer] Thin[employer] Test Imaging System. [facility] Evaluation + Plan note Future Appointments Appointment Date:08/22/2024 01:00:00 PM Scheduled Provider:LUZ ANDERSON MD Location:[facility] Appointment Type:[facility] Evaluation note No assessment inform ation available [facility] Work Phone: Hospital course Narrative No data available for this section [facility] Hospital Discharge instructions No data available for this section [facility] Summary Purpose Family History No Family History Records FoundNo Family History Records Found No data available for this section No Family History Records Found Advance Directives No Advanced Directives Records FoundNo Advanced Directives Records FoundNo Advanced Directives Records Found Chief Complaint and Reason for Visit Chief Complaint SCREENING Chief Complaint SCREENING Additional Source Comments INFORMATION SOURCE (unrecogn ized section and content) DATE CREATED AUTHOR 05/16/2019 [facility] ([place]) DATE CREATED AUTHOR AUTHOR'S ORGANIZ ATION 07/19/2024 [facility] DATE CREATED AUTHOR AUTHOR'S ORGANIZ ATION 08/09/2024 [facility] Goals (unrecognized section and content) Goals may be documented in a n alternate sectionGoals may be documented in an alternate section No data available for this section Care Teams (unrecognized sec tion and content) Team Status: Active Member Role Status Dates Dr. Janet Serna MD Family Provider Active Dr. Janet Klein MD Primary Care Provider Active Team Status: Inactive Member Role Status Dates Dr. Janet Klein MD Primary Care Provider Active Dr. Brittani Prasad MD Attending Provider, Referring Pr feliciaer Active FOR RECORDS PERTAINING TO PATIENTS WHO ARE OR HAVE BEEN ENROLLED IN A CHEMICAL DEPENDENCY/SUBSTANCEABUSE PROGRAM, SOME INFORMATION MAY BE OMITTED. This clinical summary was aggregated from multiple sources. Caution should be exercised in using it in the provision of clinical care. This summary normalizes information from multiple sources, and as a consequence, information in this document may materially change the coding, format and clinical context of patient data. In addition, data may be omitted in some cases. CLINICAL DECISIONS SHOULD BE BASED ON THE PRIMARY CLINICAL RECORDS. [employer] [facility]. provides no warranty or guarantee of the accuracy or completeness of information in this document.
--- OUTSIDE RECORDS SUMMARY | 2025-03-15 11:49 | XMS RPT_ITS | CCD ---
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 Role Phone Austin TAPIAThao Jessy Unavailable [...] Unavailable JANET KLEIN MD Primary Care Physician [phone] JANET KLEIN MD Primary Care Unavailable BRITTANI [...] daily on days 2 through 5 AZITHROMYCIN [id number] Khurram BETTENCOURT benzonatate 200 mg oral capsule (4 sources) Non-narcotic Antitussive Start: 12-24-2016 BENZONATATE 200 MG CAPS 1 capsule 3 times a day as needed for cough BENZONATATE [id number] Khurram BETTENCOURT {24 (drospirenone 3 MG / Ethinyl Estradiol 0.02 MG Oral Tablet) / 4 (Inert Ingredients 1 MG Oral Tablet) } Pack [Adeola 28 Day] (2 sources) Progestin, Estrogen Start: 07-25-2024 take 1 tablet by mouth once daily Adeola 3 mg-0.02 mg oral tablet Dose = 1 tab(s), Oral, Daily, # 84 tab(s), 4 Refill(s), Pharmacy: [facility], Well woman exam Screening for cervical cancer, 139, cm, 07/25/24 9:45:00 EST, Height, kg, 07/25/24 9:45:00 EST, Dosing Weight Start Date: 07/25/24 Status: Ordered Start: 06-08-2023 take 1 tablet by felipe th once daily Adeola 3 mg-0.02 mg oral tablet Dose = 1 tab(s), Oral, Daily, # 84 tab(s), 3 Refill(s), Pharmacy: [facility], 172, cm, 04/26/23 10:02:00 EDT, Height, kg, 04/26/23 10:02:00 EDT, Dosing Weight Start Date: 06/08/23 Status: Ordered NORETHIN-ETH ESTRAD-FE BIPHAS (2 sources) Estrogen Start: 12-24-2016 LO LOESTRIN FE 1 MG-10 MCG / 10 MCG TABS as directed NORETHIN-ETH ESTRAD-FE BIPHAS [id number] Khurram BETTENCOURT NORETHIN-ETH ESTRAD-FE BIPHAS (2 sources) Estrogen Start: 12-24-2016 LO LOESTRIN FE 1 MG-10 MCG / 10 MCG TABS as directed NORETHIN-ETH ESTRAD-FE BIPHAS [id number] Khurram BETTENCOURT Problems Active Problems Problem Classification [...] Test Name Value Interpretation Reference Range Facility [employer] Cytology 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 Pathology Reports Accession: Collected Date/Time: Received Date/Time: Pathologist: [id number] 07/25/2024 10:33 EST 07/25/2024 18:00 EST [employer] Cytology Report SPECIMEN: Specimen Description: Liquid Prep [...] and evaluated with the assistance of the [employer] ThinPrep Test Imaging System. Pathology Reports Accession: Collected Date/Time: Received Date/Time: Pathologist: [id number] 07/25/2024 10:33 EST 07/25/2024 18:00 EST Electronically Signed by Pathology report verified by [facility] Screened by: [place] Electronically signed by Helga HORTA (ASCP) Sign-Out Date: 07/28/2024 14:40 Performing Lab: [facility], [address] [place] [address] Pathology Dept Disclaimer The Pap test is a screening test for cervical cancer. As evidenced by published data, it is subject to both inherent false negative and false positive results. Your patient's results should be interpreted in context with pertinent clinical history including gynecological examination. Normal [facility] HPVon 07-28-2024 HPV Interp Normal See Interp HPVN [facility] Comment on above: Order Comment: Order placed by AP_HPV_ORDER rule from [id number] Result Comment: High Risk HPV Typing: NEGATIVE [...] HPVN Performed By: #### H PV #### [place] [address] HPV Source Cervix Normal [facility] Comment on above: Order Comment: Order placed by AP_HPV_ORDER rule from [id number] Performed By: #### H PV #### [place] [address] LABORATORYOrdered By: Sommer Galvan on 07-25-2024 HPV [...] BILATo n 07-07-2024 SCRN MAMM (CAD)W/KAYE BILAT [facility] [address] [place] [address] [id number] SCRN MAMM (CAD)W/KAYE BILAT MR#: [id number] Acct: [id number] Name: BALDOMERO ARREOLA Rep #: [id number] : 1975 F 49 From: Sean gu MD PCP: Dr. Janet Klein MD Status: [facility] Study: SCRN MAMM (CAD)W/KAYE BILAT Date of Exam: 06/17 10/09 Exam# [id number] Ordering Dr: Janet Klein MD [id number] MAMMOGRAPHY - BILATERAL SCREENING REASON FOR EXAM: [...] delay biopsy of a clinically suspicious abnormality. [id number] Electronically Signed: Sean Haynes MD at 14:20 EST , CC: Dr. 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: Signed Normal [facility] Lipid Profileon 02-04-2024 Cholesterol [Mass/Vol] 207 mg/dL High 200 [facility] Comment on above: Order Comment: Order Date: 01/28/24 Order Info: [id number] - LIPID Result Comment: <200 mg/dL Desirable 200-240 mg/dL Borderline >240 mg/dL High Risk Performed By: #### L 500.4100 #### [facility] Laboratory [facility] [place] [place], [address] Cholesterol in HDL [Mass/Vol] 67 mg/dL Normal [facility] Comment on above: Order Comment: Order Date: 01/28/24 Order Info: [id number] - LIPID Result Comment: The drugs N-Acetylcysteine and Metamizole may falsely depress this assay. Reference Range HDL <40 mg/dL Low HDL Cholesterol HDL >or= 60 mg/dL High HDL Cholesterol Performed By: #### L 500.4100 #### [facility] [address] [place], [address] Cholesterol in LDL [Mass/Vol] 113 mg/dL Normal 0-130 [facility] Comment on above: Order Comment: Order Date: 01/28/24 Order Info: [id number] - LIPID Performed By: #### L 500.4100 #### [facility] [address] [place], [address] Cholesterol in VLDL [Mass/Vol] 27 mg/dL Normal 5-40 [facility] Comment on above: Order Comment: Order Date: 01/28/24 Order Info: [id number] - LIPID Performed By: #### L 500.4100 #### [facility] [address] [place], [address] Triglyceride [Mass/Vol] 137 mg/dL Normal [facility] Comment on above: Order Comment: Order Date: 01/28/24 Order Info: [id number] - LIPID Result Comment: The drugs N-Acetylcysteine and Metamizole may falsely depress this assay. Serum Triglycerides Reference Interval Normal <150 mg/dL Borderline high 150 - 199 mg/dL High 200 - 499 mg/dL Very High > or = 500 mg/dL Performed By: #### L 500.4100 #### [facility] [address] [place], [address] CBC, Employeeon 01-26-2024 Absolute Lymph 1.70 X10 3/uL Normal 0.83-4.51 [facility] Comment on above: Performed By: #### L 500.2900, L100.0200, L400.0100 #### [facility] [address] [place], [address] Absolute Neut 2.7 X10 3/uL Normal 2.0-7.7 [facility] Comment on above: Performed By: #### L 500.2900, L100.0200, L400.0100 #### [facility] [address] [place], [address] Basophils/100 WBC (Bld) 0.8 % Normal 0-1 [facility] Comment on above: Performed By: #### L 500.2900, L100.0200, L400.0100 #### [facility] [address] [place] [place], [address] Eosinophils/100 WBC (Bld) 3.9 % Normal 0-5 [facility] Comment on above: Performed By: #### L 500.2900, L100.0200, L400.0100 #### [facility] [address] [place], [address] Erythrocyte distribution width (RBC) [Ratio] 11.8 % Normal 11.6-14.6 [facility] Comment on above: Performed By: #### L 500.2900, L100.0200, L400.0100 #### [facility] [address] [place], [address] Hematocrit (Bld) [Volume fraction] 38.2 % Normal 37-47 [facility] Comment on above: Performed By: #### L 500.2900, L100.0200, L400.0100 #### [facility] [address] [place], [address] Hemoglobin (Bld) [Mass/Vol] 12.6 g/dL Normal 12.0-15.0 [facility] Comment on above: Performed By: #### L 500.2900, L100.0200, L400.0100 #### [facility] [address] [place], [address] Lymphocytes/100 WBC (Bld) 32.9 % Normal 19-41 [facility] Comment on above: Performed By: #### L 500.2900, L100.0200, L400.0100 #### [facility] [address] [place], [address] MCH (RBC) [Entitic mass] 31.3 pg Normal 27.0-32.0 [facility] Comment on above: Performed By: #### L 500.2900, L100.0200, L400.0100 #### [facility] [address] [place], [address] MCHC (RBC) [Mass/Vol] 33.0 g/dL Normal 32-36 [facility] Comment on above: Performed By: #### L 500.2900, L100.0200, L400.0100 #### [facility] [address] [place], [address] MCV (RBC) [Entitic vol] 95.0 fL Normal 81-99 [facility] Comment on above: Performed By: #### L 500.2900, L100.0200, L400.0100 #### [facility] [address] [place], [address] Monocytes/100 WBC (Bld) 11.0 % High 0-10 [facility] Comment on above: Performed By: #### L 500.2900, L100.0200, L400.0100 #### [facility] [address] [place], [address] Neutrophils/100 WBC (Bld) 51.2 % Normal 47-70 [facility] Comment on above: Performed By: #### L 500.2900, L100.0200, L400.0100 #### [facility] [address] [place], [address] NRBC # 0.00 10 3/uL Normal 0-5 [facility] Comment on above: Performed By: #### L 500.2900, L100.0200, L400.0100 #### [facility] [address] [place], [address] Nucleated RBC (Bld) [#/Vol] 0 10*3/uL Normal 0-5 [facility] Comment on above: Performed By: #### L 500.2900, L100.0200, L400.0100 #### [facility] [address] [place], [address] Platelet mean volume (Bld) [Entitic vol] 11.0 fL Normal 6.2-12.0 [facility] Comment on above: Performed By: #### L 500.2900, L100.0200, L400.0100 #### [facility] [address] [place], [address] Platelets (Bld) [#/Vol] 229 10*3/uL Normal 150-450 [facility] Comment on above: Performed By: #### L 500.2900, L100.0200, L400.0100 #### [facility] [address] [place], [address] RBC (Bld) [#/Vol] 4.02 10*6/uL Low 4.2-5.4 [facility] Comment on above: Performed By: #### L 500.2900, L100.0200, L400.0100 #### [facility] [address] [place], [address] RDW SD 40.8 fl Normal 35.1-43.9 [facility] Comment on above: Performed By: #### L 500.2900, L100.0200, L400.0100 #### [facility] [address] [place], [address] WBC (Bld) [#/Vol] 5.2 10*3/uL Normal 4.4-11.0 [facility] Comment on above: Performed By: #### L 500.2900, L100.0200, L400.0100 #### [facility] [address] [place], [address] Employee Profileon 4 Albumin [Mass/Vol] 3.5 g/dL Normal 3.2-5.0 [facility] Comment on above: Performed By: #### L 500.2900, L100.0200, L400.0100 #### [facility] [address] [place], [address] Albumin/Globulin [Mass ratio] 1.0 {ratio} Normal 0.9-2.4 [facility] Comment on above: Performed By: #### L 500.2900, L100.0200, L400.0100 #### [facility] [address] [place], [address] ALK P 133 U/L High 45-117 [facility] Comment on above: Performed By: #### L 500.2900, L100.0200, L400.0100 #### [facility] [address] [place], [address] ALT [Catalytic activity/Vol] 22 U/L Normal 13-56 [facility] Comment on above: Performed By: #### L 500.2900, L100.0200, L400.0100 #### [facility] [address] [place], [address] AST [Catalytic activity/Vol] 27 U/L Normal 15-37 [facility] Comment on above: Performed By: #### L 500.2900, L100.0200, L400.0100 #### [facility] [address] [place], [address] Bilirubin [Mass/Vol] 0.20 mg/dL Normal 0.20-1.00 [facility] Comment on above: Result Comment: For patients on eltrombopag therapy, use of Dimension [place] TBIL is not recommended. Performed By: #### L 500.2900, L100.0200, L400.0100 #### [facility] [address] [place], [address] Bilirubin.direct [Mass/Vol] 0.08 mg/dL Normal 0.00-0.30 [facility] Comment on above: Performed By: #### L 500.2900, L100.0200, L400.0100 #### [facility] [address] [place], [address] BUN/CRE 14.3 RATIO Normal 10-20 [facility] Comment on above: Performed By: #### L 500.2900, L100.0200, L400.0100 #### [facility] [address] [place], [address] CA,Total 9.0 mg/dL Normal 8.5-10.1 [facility] Comment on above: Performed By: #### L 500.2900, L100.0200, L400.0100 #### [facility] [address] [place], [address] Chloride [Moles/Vol] 107 mmol/L Normal 98-107 [facility] Comment on above: Performed By: #### L 500.2900, L100.0200, L400.0100 #### [facility] [address] [place], [address] CHOL:HDL 6.30 Normal [facility] Comment on above: Performed By: #### L 500.2900, L100.0200, L400.0100 #### [facility] [address] [place], [address] Cholesterol [Mass/Vol] 252 mg/dL High 200 [facility] Comment on above: Result Comment: <200 mg/dL Desirable 200-240 mg/dL Borderline >240 mg/dL High Risk Performed By: #### L 500.2900, L100.0200, L400.0100 #### [facility] [address] [place], [address] Cholesterol in HDL [Mass/Vol] 40 mg/dL Normal [facility] Comment on above: Result Comment: The drugs N-Acetylcysteine and Metamizole may falsely depress this assay. Reference Range HDL <40 mg/dL Low HDL Cholesterol HDL >or= 60 mg/dL High HDL Cholesterol Performed By: #### L 500.2900, L100.0200, L400.0100 #### [facility] [address] [place], [address] CO2 [Moles/Vol] 25.0 mmol/L Normal 21.0-32.0 [facility] Comment on above: Performed By: #### L 500.2900, L100.0200, L400.0100 #### [facility] [address] [place], [address] Creatinine [Mass/Vol] 0.84 mg/dL Normal 0.55-1.02 [facility] Comment on above: Result Comment: The validity of the calculated GFR GFRAA in patients over 70 years has not been determined. Clinical correlation is essential. Performed By: #### L 500.2900, L100.0200, L400.0100 #### [facility] [address] [place], [address] EST GFR - AA 94 mL/min Normal >60 [facility] Comment on above: Result Comment: Afri can Latvian GFR Calc Performed By: #### L 500.2900, L100.0200, L400.0100 #### [facility] [address] [place], [address] GAP 7 Normal 5-15 [facility] Comment on above: Performed By: #### L 500.2900, L100.0200, L400.0100 #### [facility] [address] [place], [address] GFR/1.73 sq M.predicted among non-blacks MDRD (S/P/Bld) [Vol rate/Area] 78 mL/min/{1.73_m2} Normal >60 [facility] Comment on above: Result Comment: Non- GFR Calc Performed By: #### L 500.2900, L100.0200, L400.0100 #### [facility] [address] [place], [address] Globulin (S) [Mass/Vol] 3.4 g/dL Normal 2.2-4.2 [facility] Comment on above: Performed By: #### L 500.2900, L100.0200, L400.0100 #### [facility] [address] [place], [address] Glucose [Mass/Vol] 101 mg/dL Normal 74-106 [facility] Comment on above: Result Comment: Fast ing Glucose result from 100 to 125 mg/dL suggests IMPAIRED HOMEOSTASIS per A.D.A. criteria. Performed By: #### L 500.2900, L100.0200, L400.0100 #### [facility] [address] [place], [address] LDH 203 U/L Normal 84-246 [facility] Comment on above: Performed By: #### L 500.2900, L100.0200, L400.0100 #### [facility] [address] [place], [address] LDL TNP Normal 0-130 [facility] Comment on above: Performed By: #### L 500.2900, L100.0200, L400.0100 #### [facility] [address] [place], [address] Phosphate [Mass/Vol] 3.5 mg/dL Normal 2.5-4.9 [facility] Comment on above: Performed By: #### L 500.2900, L100.0200, L400.0100 #### [facility] [address] [place], [address] Potassium [Moles/Vol] 3.8 mmol/L Normal 3.5-5.1 [facility] Comment on above: Performed By: #### L 500.2900, L100.0200, L400.0100 #### [facility] [address] [place], [address] Sodium [Moles/Vol] 139 mmol/L Normal 136-145 [facility] Comment on above: Performed By: #### L 500.2900, L100.0200, L400.0100 #### [facility] [address] [place], [address] T PROT 6.9 g/dL Normal 6.4-8.2 [facility] Comment on above: Performed By: #### L 500.2900, L100.0200, L400.0100 #### [facility] [address] [place], [address] Triglyceride [Mass/Vol] 489 mg/dL High [facility] Comment on above: Result Comment: The drugs N-Acetylcysteine and Metamizole may falsely depress this assay. TRIGLYCERIDE IS GREATER THAN 400 mg/dL. LDL RESULT IS INVALID AND WILL NOT BE REPORTED. Serum Triglycerides Reference Interval Normal <150 mg/dL Borderline high 150 - 199 mg/dL High 200 - 499 mg/dL Very High > or = 500 mg/dL Performed By: #### L 500.2900, L100.0200, L400.0100 #### [facility] [address] [place], [address] Urea nitrogen [Mass/Vol] 12 mg/dL Normal 7-18 [facility] Comment on above: Performed By: #### L 500.2900, L100.0200, L400.0100 #### [facility] [address] [place], [address] URIC 4.8 mg/dL Normal 2.6-6.0 [facility] Comment on above: Result Comment: The drugs N-Acetylcysteine and Metamizole may falsely depress this assay. Performed By: #### L 500.2900, L100.0200, L400.0100 #### [facility] [address] [place], [address] VLDL TNP Normal 5-40 [facility] Comment on above: Performed By: #### L 500.2900, L100.0200, L400.0100 #### [facility] [address] [place], [address] Urinalysis, Employeeon 01-25 BILIRUBIN URINE Negative Normal Negative [facility] Comment on above: Performed By: #### L 500.2900, L100.0200, L400.0100 #### [facility] [address] [place], [address] Clarity (U) Clear Normal Clear [facility] Comment on above: Performed By: #### L 500.2900, L100.0200, L400.0100 #### [facility] [address] [place], [address] Color (U) Yellow Normal Yellow [facility] Comment on above: Performed By: #### L 500.2900, L100.0200, L400.0100 #### [facility] [address] [place], [address] GLUCOSE, UR Normal Normal Normal [facility] Comment on above: Performed By: #### L 500.2900, L100.0200, L400.0100 #### [facility] [address] [place], [address] KETONE UR Negative Normal Negative [facility] Comment on above: Performed By: #### L 500.2900, L100.0200, L400.0100 #### [facility] [address] [place], [address] LEUK ESTERASE 25 /ul Abnormal Negative [facility] Comment on above: Performed By: #### L 500.2900, L100.0200, L400.0100 #### [facility] [address] [place], [address] Nitrite Ql (U) Negative Normal Negative [facility] Comment on above: Performed By: #### L 500.2900, L100.0200, L400.0100 #### [facility] [address] [place], [address] OCCULT BLOOD-UR 25 /ul Abnormal Negative [facility] Comment on above: Performed By: #### L 500.2900, L100.0200, L400.0100 #### [facility] [address] [place], [address] pH UR 6.0 Normal 5.0 - 8.0 [facility] Comment on above: Performed By: #### L 500.2900, L100.0200, L400.0100 #### [facility] [address] [place], [address] PROT DIPSTX 100 mg/dl Abnormal Negative [facility] Comment on above: Performed By: #### L 500.2900, L100.0200, L400.0100 #### [facility] [address] [place], [address] SP.GR. DIPSTX 1.020 Normal 1.002-1.030 [facility] Comment on above: Performed By: #### L 500.2900, L100.0200, L400.0100 #### [facility] [address] [place], [address] UROBILI Normal Normal Normal [facility] Comment on above: Performed By: #### L 500.2900, L100.0200, L400.0100 #### [facility] [place], [address] HPVon 05-11-2019 HPV Interp Normal See Interp HPVN [facility] Comment on above: Order Comment: Order placed by AP_HPV_ORDER rule from [id number] Result Comment: High Risk HPV Typing: NEGATIVE [...] and sufficient DNA to be detected. See [facility] HPVN Performed By: #### H PV #### [place] [address] HPV Source Cervix Normal [facility] [place] Comment on above: Order Comment: Order placed by AP_HPV_ORDER rule from [id number] Performed By: #### H PV #### [place] [id number] [employer] Cytology Reporton 2018 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 Pathology Reports Accession: Collected Date/Time: Received Date/Time: Pathologist: [id number] 05/05/2019 12:35 EDT 05/05/2019 18:00 EDT [employer] Cytology Report SPECIMEN: Specimen Description: Liquid Prep w/ HPV Specimen: Cervical/Endocervical Screening or Diagnostic: Screening RELEVANT HISTORY: LMP: 01-20-17 Control: Yes [id number] SPECIMEN ADEQUACY: SATISFACTORY FOR EVALUATION ENDOCERVICAL/TRANSFORM ATIONAL ZONE COMPONENT ABSENT/INSUFFICIENT INTERPRETATION/RESULTS : NEGATIVE FOR INTRAEPITHELIAL LESION OR MALIGNANCY ADJUNCTIVE TESTING: HIGH RISK HPV DNA TESTING ORDERED, REPORT TO FOLLOW UNDER SEPARATE COVER COMMENT: This Pap Test was successfully processed and evaluated with the assistance of the [employer] Test Imaging System. Electronically Signed by Pathology report verified by [facility] Screened by: KK Electronically signed by Tatyana HORTA (ASCP) Sign-Out Date: 05/10/2019 11:36 Performing Lab: [facility], [address] [place] [address] Disclaimer The Pap test is a screening test for cervical cancer. As evidenced by published data, it is subject to both inherent false negative and false positive results. Your patient's results should be interpreted in context with pertinent clinical history including gynecological examination. Normal [facility] [place] Comment on above: Performed By: #### G YCR #### [place] [address] Microbiology: Culture, R/O S trep Aon 12-28-2016 CUSTREPA . [facility] Work Phone: Microbiology: (P) Culture, R /O Strep Aon 12-25-2016 GE use only - for [employer] import when terms are not otherwise specified . Invalid Interpretation Code [facility] Work Phone: Office Visit: UC: Bronchitis , pharyngitison 12-24-2016 Documentation of current medications (procedure) Done Invalid Interpretation Code [facility] Work Phone: Protein mass conc Done [facility] Work Phone: Tobacco smoking status NHIS Never [facility] Work Phone: Tobacco smoking status NHIS Never smoker [facility] Work Phone: Tobacco use HS Never smoker Invalid Interpretation Code [facility] Work Phone: Vital Signs Date Time Vital Sign Value Performing Clinician Nalini presley 12-24-2016 14:37-0400 BMI (Body Mass Index) 20.2 kg/m2 Thao Avila LPN [facility] Work Phone: 12-24-2016 14:37-0400 Body Temperature 98.6 [degF] Thao Avila LPN [facility] Work Phone: 12-24-2016 14:37-0400 BP Diastolic 76 mm[Hg] Thao Avila LPN [facility] Work Phone: 12-24-2016 14:37-0400 BP Systolic 108 mm[Hg] Thao Avila LPN [facility] Work Phone: 12-24-2016 14:37-0400 Height 170.18 cm Thao Avila LPN [facility] Work Phone: 12-24-2016 14:37-0400 Pulse (Heart Rate) 97 /min Thao Avila LPN [facility] Work Phone: 12-24-2016 14:37-0400 Pulse Oximetry 98 % Thao Avila LPN [facility] Work Phone: 12-24-2016 14:37-0400 Respiratory Rate 12 /min Thao Avila LPN [facility] Work Phone: 12-24-2016 14:37-0400 Weight 58.51 kg Thao Avila LPN [facility] Work Phone: Encounters Encounter Date Encounter Type Care Provider Facility Start: 07-25-2024 End: 07-29-2024 ambulatory JANET KLEIN MD Facility:[facility] Start: 07-25-2024 End: 07-29-2024 Outreach Lab BRITTANI PRASAD MD [facility] Start: 07-07-2024 End: 07-07-2024 ambulatory Janet Klein Facility:[facility] Start: 02-04-2024 End: 02-04-2024 ambulatory Janet Klein Facility:[facility] Start: 01-26-2024 ambulatory Health Risk Assessment Facility:[facility] Start: 07-02-2023 End: 07-02-2023 ambulatory [facility] Work Phone: Start: 07-02-2023 End: 07-02-2023 Patient encounter procedure [facility] Work Phone: Start: 06-30-2022 End: 06-30-2022 ambulatory [facility] Work Phone: Start: 06-30-2022 End: 06-30-2022 Patient encounter procedure [facility] Procedures Date Procedure Procedure Detail [...] Author Start: 12-24-2016 End: 12-24-2016 Appointment Appointment [facility] Work Phone: Start: 12-24-2016 End: 12-24-2016 Streptococcus.beta-hemol ytic [Presence] in Throat by Organism specific culture *Culture, R/O Strep A Swab [facility] Work Phone: Patient Education ACUTE%20BRONCHITIS [facility] Work Phone: Immunizations Immunization Date Immunization Notes Care Provider Karen snyder 06-03-2023 influenza, injectabl e, quadrivalent, preservative free [facility] 05-18-2022 influenza, injectabl e, quadrivalent, preservative free [facility] 05-18-2022 influenza, seasonal, injectable [facility] Work Phone: 06-27-2021 Covid (Moderna) [facility] 05-21-2021 influenza, injectabl e, quadrivalent, preservative free [facility] 05-21-2021 influenza, seasonal, injectable [facility] Work Phone: 09-18-2020 Covid (Moderna) [facility] 08-21-2020 Covid (Moderna) [facility] 05-14-2020 influenza, injectabl e, quadrivalent, preservative free [facility] 05-14-2020 influenza, seasonal, injectable [facility] Work Phone: 05-11-2019 influenza, injectabl e, quadrivalent, preservative free [facility] 05-11-2019 influenza, seasonal, [facility] Work Phone: 05-30-2018 influenza, injectabl e, quadrivalent, preservative free [facility] 05-30-2018 influenza, seasonal, injectable [facility] Work Phone: 05-12-2017 influenza, injectabl e, quadrivalent, preservative free [facility] 05-12-2017 influenza, seasonal, [facility] Work Phone: 05-15-2016 influenza, injectabl e, quadrivalent, preservative free [facility] 05-15-2016 influenza, seasonal, injectable [facility] Work Phone: 05-16-2015 influenza, injectabl e, quadrivalent, preservative free [facility] 05-16-2015 influenza, seasonal, injectable [facility] Work Phone: 05-16-2014 influenza, injectabl e, quadrivalent, preservative free [facility] 05-16-2014 influenza, seasonal, injectable [facility] Work Phone: 06-15-2013 Influenza virus vaccine [facility] Payers Date Payer Category Payer Unknown [id number] 2024 Self-pay [id number] 2016 Unknown [id number] 1975 Unknown [id number] Unknown [id number] Unknown [id number] [id number] [id number] Unknown [id number] [id number] [id number] Social History Date Type Detail [facility] Work Phone: Start: 1975 Sex Assigned At Female [facility] Start: 12-16-2020 Tobacco smoking status Never s moked tobacco (finding) [facility] Clinical Notes 07-28-2024 Note Date & Type Note Facility 07-28-2024 Note This Pap Test was successfully processed and evaluated with the assistance of the [employer] [facility] 07-28-2024 Note This Pap Test was successfully processed and evaluated with the assistance of the [employer] [facility] 07-28-2024 Note This Pap Test was successfully processed and evaluated with the assistance of the [employer] [facility] 07-28-2024 Note This Pap Test was successfully processed and evaluated with the assistance of the [employer] [facility] 07-28-2024 Note This Pap Test was successfully processed and evaluated with the assistance of the [employer] [facility] 07-28-2024 Note This Pap Test was successfully processed and evaluated with the assistance of the [employer] [facility] 07-28-2024 Note This Pap Test was successfully processed and evaluated with the assistance of the [employer] [facility] 07-28-2024 Note This Pap Test was successfully processed and evaluated with the assistance of the [employer] [facility] Evaluation + Plan note Future Appointments Appointment Date:08/22/2024 01:00:00 PM Scheduled Provider:LUZ ANDERSON MD Location:[facility] Appointment Type:[facility] Evaluation note No assessment inform ation available [facility] Work Phone: Hospital course Narrative No data available for this section [facility] Discharge instructions No data available for this section [facility] Summary Purpose Family History No Family [...] section and content) DATE CREATED AUTHOR 05/16/2019 [facility] ([place]) DATE CREATED AUTHOR AUTHOR'S ORGANIZ ATION 07/19/2024 [facility] DATE CREATED AUTHOR AUTHOR'S ORGANIZ ATION 08/09/2024 [facility] Goals (unrecognized section and content) Goals may [...] BE BASED ON THE PRIMARY CLINICAL RECORDS. [employer] [facility]. provides no warranty or guarantee of the accuracy or completeness of information in this document.
== END | disposition home or self-care (01) ==
LOC: MFPLAB 03-15 09:26
PROVIDERS: PCP Family Medicine; Referring Provider Family Medicine; Visit Provider Family Medicine
DX: R73.09 Other abnormal glucose (principal)
CPT/HCPCS: 83036

== ENCOUNTER → 2025-07-10 | Outpatient (CLI) | payer OTHER, SELFPAY ==
--- NOTE | 2025-07-10 09:50 | BI_ITS ---
EXAM: SCRN MAMM (CAD)W/KAYE BILAT DATE: 07/10/2025 CLINICAL HISTORY: F, Age 50 y/o , SCREENING FOR BREAST CANCER TECHNIQUE: Procedure Code: [id number] Modality: MG Procedure: SCRN MAMM (CAD)W/KAYE BILAT COMPARISON: Prior exam(s) dated 07/07/2024, 07/02/2023, and 06/30/2022. FINDINGS: TISSUE DENSITY: The breasts are heterogeneously dense, which may obscure small masses. Bilateral Breast Mammographic Findings: No significant masses, calcifications or other abnormalities are identified. BI/SCRN MAMM (CAD)W/KAYE BILAT IMPRESSION: Benign screening mammogram OVERALL FINAL ASSESSMENT BI-RADS 2: BENIGN RECOMMENDATION: Routine annual follow-up in 1 Year Additional Recommendation none A letter with findings and recommendations will be mailed to the patient. Reading Location: [id number]
== END | disposition home or self-care (01) ==
PROVIDERS: PCP Family Medicine
DX: Z12.31 Encounter for screening mammogram for malignant neoplasm of breast (principal)
CPT/HCPCS: 77063; 77067

== ENCOUNTER 2025-07-17 05:20 | Day surgery (SDC) | payer OTHER, SELFPAY ==
[2025-07-17] VITALS (7 sets, daily range): BP systolic 95–118; BP diastolic 70–79; PULSE 70–96; RESP 16; TEMP 36.2–36.8; O2SAT 97–100; BMI 22.4
--- OUTSIDE RECORDS SUMMARY | 2025-07-17 05:23 | XMS RPT_ITS | CCD ---
Author Organization [facility] Inform ion Partnership [facility] Care Team Providers Care Production Generalist Name Role Phone Austin TAPIAThao Jessy Unavailable [phone] Now Nurse Unavailable Unavailable Now Nurse Unavailable Unavailable Now Nurse Unavailable Unavailable LATOYA BENITEZ, JANET Primary Care Physician [phone] JANET KLEIN MD Primary Care Unavailable BRITTANI PRASAD MD Attending Unavailable Dr. Janet Klein MD Primary Care Provider Assessment, Health Risk Attending Provider Unava ilable Assessment, Health Risk Referring Provider Unava ilable Latoya BENITEZ, Dr. Janet Fraga Attending Provider Dr. Janet Klein MD Referring Provider [phone] Janet Klein Primary Care Unavailable Janet Klein Referring Unavailable Janet Klein Attending Unavailable Everardo Estrada Attending Unavailable Janet Klein Primary Care Unavailable Janet Klein Primary Care Unavailable Assessment, Health Risk Referring Unavaila ble Assessment, Health Risk Attending Unavaila ble Janet Klein Primary Care Unavailable Janet Klein Referring Unavailable Janet Klein Attending Unavailable Medications Current Medications Medication Drug [...] daily on days 2 through 5 AZITHROMYCIN [id number] Khurram BETTENCOURT benzonatate 200 mg oral capsule (4 sources) Non-narcotic Antitussive Start: 12-24-2016 BENZONATATE 200 MG CAPS 1 capsule 3 times a day as needed for cough BENZONATATE [id number] Khurram BETTENCOURT {24 (drospirenone 3 MG / Ethinyl Estradiol 0.02 MG Oral Tablet) / 4 (Inert Ingredients 1 MG Oral Tablet) } Pack [Adeola 28 Day] (2 sources) Progestin, Estrogen Start: 07-25-2024 take 1 tablet by mouth once daily Adeola 3 mg-0.02 mg oral tablet Dose = 1 tab(s), Oral, Daily, # 84 tab(s), 4 Refill(s), Pharmacy: [facility], Well woman exam Screening for cervical cancer, 139, cm, 07/25/24 9:45:00 EST, Height, kg, 07/25/24 9:45:00 EST, Dosing Weight Start Date: 07/25/24 Status: Ordered Start: 06-08-2023 take 1 tablet by felipe th once daily Adeola 3 mg-0.02 mg oral tablet Dose = 1 tab(s), Oral, Daily, # 84 tab(s), 3 Refill(s), Pharmacy: [facility], 172, cm, 04/26/23 10:02:00 EDT, Height, kg, 04/26/23 10:02:00 EDT, Dosing Weight Start Date: 06/08/23 Status: Ordered NORETHIN-ETH ESTRAD-FE BIPHAS (2 sources) Estrogen Start: 12-24-2016 LO LOESTRIN FE 1 MG-10 MCG / 10 MCG TABS as directed NORETHIN-ETH ESTRAD-FE BIPHAS [id number] Khurram BETTENCOURT NORETHIN-ETH ESTRAD-FE BIPHAS (2 sources) Estrogen Start: 12-24-2016 LO LOESTRIN FE 1 MG-10 MCG / 10 MCG TABS as directed NORETHIN-ETH ESTRAD-FE BIPHAS [id number] Khurram BETTENCOURT Problems Active Problems Problem Classification Problem Date Documented Da te Episodic/Chronic Diabetes mellitus without complication (1 source) Other abnormal glucose; Translations: [Other abnormal glucose] Onset: 03-30-2025 Episodic Menopausal disorders (3 sources) Premature ovarian failure; Translations: [Other primary ovarian failure] Onset: 07-25-2024 02-02-2022 Chronic Viral infection (3 sources) Disease caused by 2019-nCoV; Translations: [COVID-19] 12-14-2021 Episodic Past or Other Problems Problem Classification Problem Date Documented Da te Episodic/Chronic Chronic obstructive pulmonary disease and bronchiectasis (4 sources) Bronchitis; Translations: [Bronchitis, not specified as acute or chronic] Onset: 12-24-2016 12-24-2016 Episodic Other screening for suspected conditions (not mental disorders or infectious disease) (3 sources) Encounter for screening for malignant neoplasm of cervix; Translations: [Encounter for screening mammogram for malignant neoplasm of breast] Onset: 07-17-2024 Episodic Other upper respiratory infections (4 sources) Pharyngitis; Translations: [Acute pharyngitis, unspecified] Onset: 12-24-2016 12-24-2016 Episodic Results Test Name Value Interpretation Reference Range Facility Hemoglobin A1con 03-15-2025 HbA1c (Bld) [Mass fraction] 5.5 % Normal <=5.6 [facility] Comment on above: Order Comment: GIUSEPPE Fraga USE BLOOD SAMPLE FROM EMPLOYEE LAB DRAW TO ADD A1C PER Result Comment: Norm al < 5.7 % Prediabetic 5.7 - 6.4 % Diabetic >or= 6.5 % Please note range changes. Performed By: #### L 501.9985 #### [facility] [address] [place], [place] [address], [address] Absolute lymphocyte countOrd ered By: HEALTH ASSESSMENT on 03-14-2025 Lymphocytes Auto (Unsp spec) [#/Vol] 1.75 10*3/uL 0.83-4.51 [facility] Absolute neutrophil countOrd ered By: HEALTH ASSESSMENT on 03-14-2025 Neutrophils (Bld) [#/Vol] 5.1 10*3/uL 2.0-7.7 [facility] Absolute nucleated red blood cell countOrdered By: HEALTH ASSESSMENT on 03-14-2025 Nucleated RBC (Bld) [#/Vol] 0.00 10*3/uL 0-5 [facility] Anion gap in Serum or Plasma Ordered By: HEALTH ASSESSMENT on 03-14-2025 Anion gap [Moles/Vol] 11 mmol/L 5-15 [facility] BUN/creatinine ratioOrdered By: HEALTH ASSESSMENT on 03-14-2025 Urea nitrogen/Creatinine [Mass ratio] 15.4 mg/mg 10-20 [facility] Bilirubin Test strip Ql (U)O rdered By: HEALTH ASSESSMENT on 03-14-2025 Bilirubin Ql (U) Negative Negative [facility] Bilirubin directOrdered By: HEALTH ASSESSMENT on 03-14-2025 Bilirubin.direct [Mass/Vol] 0.10 mg/dL 0.00-0.30 [facility] Comment on above: Hemolysis present, R esults could be affected. Bilirubin, totalOrdered By: HEALTH ASSESSMENT on 03-14-2025 Bilirubin [Mass/Vol] 0.30 mg/dL 0.00-1.30 [facility] Blood band neutrophil count as percentage of total leukocytesOrdered By: HEALTH ASSESSMENT on 03-14-2025 Band form neutrophils/100 WBC (Bld) 66.9 % 47-70 [facility] CBC, Employeeon 03-14-2025 Absolute Lymph 1.75 X10 3/uL Normal 0.83-4.51 [facility] Comment on above: Performed By: #### L 100.0200, L500.2900, L400.0100 #### [facility] [address] [place], [address] Absolute Neut 5.1 X10 3/uL Normal 2.0-7.7 [facility] Comment on above: Performed By: #### L 100.0200, L500.2900, L400.0100 #### [facility] [address] [place], [address] Basophils/100 WBC (Bld) 0.7 % Normal 0-1 [facility] Comment on above: Performed By: #### L 100.0200, L500.2900, L400.0100 #### [facility] [address] [place], [address] Eosinophils/100 WBC (Bld) 1.2 % Normal 0-5 [facility] Comment on above: Performed By: #### L 100.0200, L500.2900, L400.0100 #### [facility] [address] [place], [address] Erythrocyte distribution width (RBC) [Ratio] 12.0 % Normal 11.6-14.6 [facility] Comment on above: Performed By: #### L 100.0200, L500.2900, L400.0100 #### [facility] [address] [place], [address] Hematocrit (Bld) [Volume fraction] 37.2 % Normal 37-47 [facility] Comment on above: Performed By: #### L 100.0200, L500.2900, L400.0100 #### [facility] [address] [place], [address] Hemoglobin (Bld) [Mass/Vol] 12.6 g/dL Normal 12.0-15.0 [facility] Comment on above: Performed By: #### L 100.0200, L500.2900, L400.0100 #### [facility] [address] [place], [address] Lymphocytes/100 WBC (Bld) 23.1 % Normal 19-41 [facility] Comment on above: Performed By: #### L 100.0200, L500.2900, L400.0100 #### [facility] [address] [place], [address] MCH (RBC) [Entitic mass] 32.1 pg High 27.0-32.0 [facility] Comment on above: Performed By: #### L 100.0200, L500.2900, L400.0100 #### [facility] [address] [place], [address] MCHC (RBC) [Mass/Vol] 33.9 g/dL Normal 32-36 [facility] Comment on above: Performed By: #### L 100.0200, L500.2900, L400.0100 #### [facility] [address] [place], [address] MCV (RBC) [Entitic vol] 94.9 fL Normal 81-99 [facility] Comment on above: Performed By: #### L 100.0200, L500.2900, L400.0100 #### [facility] [address] [place], [address] Monocytes/100 WBC (Bld) 7.8 % Normal 0-10 [facility] Comment on above: Performed By: #### L 100.0200, L500.2900, L400.0100 #### [facility] [address] [place], [address] Neutrophils/100 WBC (Bld) 66.9 % Normal 47-70 [facility] Comment on above: Performed By: #### L 100.0200, L500.2900, L400.0100 #### [facility] [address] [place], [address] NRBC # 0.00 10 3/uL Normal 0-5 [facility] Comment on above: Performed By: #### L 100.0200, L500.2900, L400.0100 #### [facility] [address] [place], [address] Nucleated RBC (Bld) [#/Vol] 0 10*3/uL Normal 0-5 [facility] Comment on above: Performed By: #### L 100.0200, L500.2900, L400.0100 #### [facility] [address] [place], [address] Platelet mean volume (Bld) [Entitic vol] 10.0 fL Normal 6.2-12.0 [facility] Comment on above: Performed By: #### L 100.0200, L500.2900, L400.0100 #### [facility] [address] [place], [address] Platelets (Bld) [#/Vol] 248 10*3/uL Normal 150-450 [facility] Comment on above: Performed By: #### L 100.0200, L500.2900, L400.0100 #### [facility] [address] [place], [address] RBC (Bld) [#/Vol] 3.92 10*6/uL Low 4.2-5.4 [facility] Comment on above: Performed By: #### L 100.0200, L500.2900, L400.0100 #### [facility] [address] [place], [address] RDW SD 41.8 fl Normal 35.1-43.9 [facility] Comment on above: Performed By: #### L 100.0200, L500.2900, L400.0100 #### [facility] [address] [place], [address] WBC (Bld) [#/Vol] 7.6 10*3/uL Normal 4.4-11.0 [facility] Comment on above: Performed By: #### L 100.0200, L500.2900, L400.0100 #### [facility] [address] [place], [address] Calculated very low density lipoprotein (VLDL) cholesterol measurementOrdered By: HEALTH ASSESSMENT on 03-14-2025 Calculated very low density lipoprotein (VLDL) cholesterol measurement 28 mg/dL 5-40 [facility] Carbon dioxide, total [Moles /volume] in Central venous bloodOrdered By: HEALTH ASSESSMENT on 03-14-2025 CO2 [Moles/Vol] 23.2 mmol/L 21.0-32.0 [facility] Chloride assayOrdered By: HE ALTH ASSESSMENT on 03-14-2025 Chloride [Moles/Vol] 105 mmol/L 98-108 [facility] Employee Profileon Albumin [Mass/Vol] 3.8 g/dL Normal 3.5-5.0 [facility] Comment on above: Performed By: #### L 100.0200, L500.2900, L400.0100 #### [facility] [address] [place], [address] Albumin/Globulin [Mass ratio] 1.4 {ratio} Normal 0.9-2.4 [facility] Comment on above: Performed By: #### L 100.0200, L500.2900, L400.0100 #### [facility] [address] [place], [address] ALK PHOS 87 U/L Normal 35-104 [facility] Comment on above: Performed By: #### L 100.0200, L500.2900, L400.0100 #### [facility] [address] [place], [address] ALT [Catalytic activity/Vol] 15 U/L Normal <=34 [facility] Comment on above: Performed By: #### L 100.0200, L500.2900, L400.0100 #### [facility] [address] [place], [address] AST [Catalytic activity/Vol] 25 U/L Normal <=31 [facility] Comment on above: Result Comment: Hemo lysis present, Results??could be affected. ?? Performed By: #### L 100.0200, L500.2900, L400.0100 #### [facility] [address] [place], [address] Bilirubin [Mass/Vol] 0.30 mg/dL Normal 0.00-1.30 [facility] Comment on above: Performed By: #### L 100.0200, L500.2900, L400.0100 #### [facility] [address] [place], [address] Bilirubin.direct [Mass/Vol] 0.10 mg/dL Normal 0.00-0.30 [facility] Comment on above: Result Comment: Hemo lysis present, Results??could be affected. ?? Performed By: #### L 100.0200, L500.2900, L400.0100 #### [facility] [address] [place], [address] BUN/CRE 15.4 RATIO Normal 10-20 [facility] Comment on above: Performed By: #### L 100.0200, L500.2900, L400.0100 #### [facility] [address] [place], [address] Calcium [Mass/Vol] 8.9 mg/dL Normal 7.6-11.0 [facility] Comment on above: Performed By: #### L 100.0200, L500.2900, L400.0100 #### [facility] [address] [place], [address] Chloride [Moles/Vol] 105 mmol/L Normal 98-108 [facility] Comment on above: Performed By: #### L 100.0200, L500.2900, L400.0100 #### [facility] [address] [place], [address] CO2 [Moles/Vol] 23.2 mmol/L Normal 21.0-32.0 [facility] Comment on above: Performed By: #### L 100.0200, L500.2900, L400.0100 #### [facility] [address] [place], [address] Creatinine [Mass/Vol] 0.88 mg/dL Normal 0.70-1.20 [facility] Comment on above: Performed By: #### L 100.0200, L500.2900, L400.0100 #### [facility] [address] [place], [address] GAP 11 Normal 5-15 [facility] Comment on above: Performed By: #### L 100.0200, L500.2900, L400.0100 #### [facility] [address] [place], [address] GFR/1.73 sq M.predicted among non-blacks MDRD (S/P/Bld) [Vol rate/Area] 81 mL/min/{1.73_m2} Normal >60 [facility] Comment on above: Result Comment: mL/m in/1.73m2 CKD-EPI Creatinine Equation (2020) Performed By: #### L 100.0200, L500.2900, L400.0100 #### [facility] [address] [place], [address] Globulin (S) [Mass/Vol] 2.7 g/dL Normal 2.2-4.2 [facility] Comment on above: Performed By: #### L 100.0200, L500.2900, L400.0100 #### [facility] [address] [place], [address] Glucose [Mass/Vol] 108 mg/dL High 70-99 [facility] Comment on above: Performed By: #### L 100.0200, L500.2900, L400.0100 #### [facility] [address] [place], [address] LDH 212 U/L Normal 84-246 [facility] Comment on above: Result Comment: Hemo lysis present, Results??could be affected. ?? Performed By: #### L 100.0200, L500.2900, L400.0100 #### [facility] [address] [place], [address] Phosphate [Mass/Vol] 3.4 mg/dL Normal 2.7-4.5 [facility] Comment on above: Performed By: #### L 100.0200, L500.2900, L400.0100 #### [facility] [address] [place], [address] Potassium [Moles/Vol] 4.5 mmol/L Normal 3.3-5.1 [facility] Comment on above: Result Comment: Hemo lysis present, Results??could be affected. ?? Performed By: #### L 100.0200, L500.2900, L400.0100 #### [facility] [address] [place], [address] Sodium [Moles/Vol] 139 mmol/L Normal 133-145 [facility] Comment on above: Performed By: #### L 100.0200, L500.2900, L400.0100 #### [facility] [address] [place], [address] T PROT 6.5 g/dL Normal 5.9-8.4 [facility] Comment on above: Performed By: #### L 100.0200, L500.2900, L400.0100 #### [facility] [address] [place], [address] Urea nitrogen [Mass/Vol] 14 mg/dL Normal 4-19 [facility] Comment on above: Performed By: #### L 100.0200, L500.2900, L400.0100 #### [facility] [address] [place], [address] URIC 5.1 mg/dL Normal 2.6-6.0 [facility] Comment on above: Result Comment: The drugs N-Acetylcysteine and Metamizole may falsely depress this assay. Performed By: #### L 100.0200, L500.2900, L400.0100 #### [facility] [address] [place], [address] Erythrocyte distribution wid th ratioOrdered By: HEALTH ASSESSMENT on 03-14-2025 Erythrocyte distribution width (RBC) [Ratio] 12.0 % 11.6-14.6 [facility] Erythrocyte distribution wid th standard deviationOrdered By: HEALTH ASSESSMENT on 03-14-2025 Erythrocyte distribution width (RBC) [Ratio] 41.8 fl 35.1-43.9 [facility] Glomerular filtration rate ( GFR) estimation/1.73 sq m using serum, plasma, or whole bOrdered By: HEALTH ASSESSMENT on 03-14-2025 GFR/1.73 sq M.predicted among non-blacks MDRD (S/P/Bld) [Vol rate/Area] 81 mL/min/{1.73_m2} >60 [facility] Comment on above: mL/min/1.73m2 CKD-EP I Creatinine Equation (2020) Hematocrit Auto (Bld) [Volum e fraction]Ordered By: HEALTH ASSESSMENT on 03-14-2025 Hematocrit (Bld) [Volume fraction] 37.2 % 37-47 [facility] Hemoglobin A1c percentageOrd ered By: Janet Klein on 03-14-2025 HbA1c (Bld) [Mass fraction] 5.5 % <5.7 [facility] Comment on above: Normal < 5.7 % Predi abetic 5.7 - 6.4 % Diabetic >or= 6.5 % Please note range changes. Hemoglobin measurementOrdere d By: HEALTH ASSESSMENT on 03-14-2025 Hemoglobin (Bld) [Mass/Vol] 12.6 g/dL 12.0-15.0 [facility] Ketones Test strip Ql (U)Ord ered By: HEALTH ASSESSMENT on 03-14-2025 Ketones Ql (U) Negative Negative [facility] LDL calc ser/plasOrdered By: HEALTH ASSESSMENT on 03-14-2025 Cholesterol in LDL [Mass/Vol] 131 mg/dL [facility] Comment on above: Pcglbnqphz=748-208 m g/dL & Higher Zekk=762 mg/dL or greaterFriedwald Equation for LDL-C Laboratory - Chemistry and C hemistry - challengeOrdered By: HEALTH ASSESSMENT on 03-14-2025 AST [Catalytic activity/Vol] 25 U/L <32 [facility] Comment on above: Hemolysis present, R esults could be affected. Lactate dehydrogenase (LDH) measurementOrdered By: HEALTH ASSESSMENT on 03-14-2025 LDH [Catalytic activity/Vol] 212 U/L 84-246 [facility] Comment on above: Hemolysis present, R esults could be affected. MCV (mean corpuscular volume ) determinationOrdered By: HEALTH ASSESSMENT on 03-14-2025 MCV (RBC) [Entitic vol] 94.9 fL 81-99 [facility] Mean corpuscular hemoglobin (MCH) determinationOrdered By: HEALTH ASSESSMENT on 03-14-2025 MCH (RBC) [Entitic mass] 32.1 pg High 27.0-32.0 [facility] Mean corpuscular hemoglobin concentration (MCHC) determinationOrdered By: HEALTH ASSESSMENT on 03-14-2025 MCHC (RBC) [Mass/Vol] 33.9 g/dL 32-36 [facility] Mean platelet volume determi nationOrdered By: HEALTH ASSESSMENT on 03-14-2025 Platelet mean volume (Bld) [Entitic vol] 10.0 fL 6.2-12.0 [facility] Nitrite Test strip Ql (U)Ord ered By: HEALTH ASSESSMENT on 03-14-2025 Nitrite Ql (U) Negative Negative [facility] Nucleated red blood cell per centageOrdered By: HEALTH ASSESSMENT on 03-14-2025 Nucleated RBC/100 WBC (Bld) [Ratio] 0 % 0-5 [facility] Platelet countOrdered By: HE ALTH ASSESSMENT on 03-14-2025 Platelets (Bld) [#/Vol] 248 10*3/uL 150-450 [facility] Potassium measurement (mass/ volume)Ordered By: HEALTH ASSESSMENT on 03-14-2025 Potassium (Unsp spec) [Mass/Vol] 4.5 mmol/L 3.3-5.1 [facility] Comment on above: Hemolysis present, R esults could be affected. Protein Test strip Ql (U)Ord ered By: HEALTH ASSESSMENT on 03-14-2025 Protein Ql (U) 100 mg/dl High Negative [facility] RBC Auto (Bld) [#/Vol]Ordere d By: HEALTH ASSESSMENT on 03-14-2025 RBC (Bld) [#/Vol] 3.92 10*6/uL Low 4.2-5.4 [facility] Screening total cholesterol/ high density lipoprotein (HDL) cholesterol ratioOrdered By: HEALTH ASSESSMENT on 03-14-2025 Cholesterol.total/Gretta sterol in HDL [Mass ratio] 2.87 {ratio} [facility] Serum creatinine measurement (mass/volume)Ordered By: HEALTH ASSESSMENT on 03-14-2025 Creatinine [Mass/Vol] 0.88 mg/dL 0.70-1.20 [facility] Serum globulin measurementOr dered By: HEALTH ASSESSMENT on 03-14-2025 Globulin (S) [Mass/Vol] 2.7 g/dL 2.2-4.2 [facility] Serum glucose measurement (m ass/volume)Ordered By: HEALTH ASSESSMENT on 03-14-2025 Glucose [Mass/Vol] 108 mg/dL High 70-99 [facility] Serum or plasma alanine epps otransferase (ALT) measurementOrdered By: HEALTH ASSESSMENT on 03-14-2025 ALT [Catalytic activity/Vol] 15 U/L <35 [facility] Serum or plasma albumin blanca urement (mass/volume)Ordered By: HEALTH ASSESSMENT on 03-14-2025 Albumin [Mass/Vol] 3.8 g/dL 3.5-5.0 [facility] Serum or plasma albumin/glob ulin mass ratioOrdered By: HEALTH ASSESSMENT on 03-14-2025 Albumin/Globulin [Mass ratio] 1.4 {ratio} 0.9-2.4 [facility] Serum or plasma alkaline sherman sphatase measurementOrdered By: HEALTH ASSESSMENT on 03-14-2025 ALP [Catalytic activity/Vol] 87 U/L 35-104 [facility] Serum or plasma calcium blanca urement (mass/volume)Ordered By: HEALTH ASSESSMENT on 03-14-2025 Calcium [Mass/Vol] 8.9 mg/dL 7.6-11.0 [facility] Serum or plasma cholesterol in HDL measurement (mass/volume)Ordered By: HEALTH ASSESSMENT on 03-14-2025 Cholesterol in HDL [Mass/Vol] 85 mg/dL >40 [facility] Comment on above: National Cholesterol Education Program (NCEP) guidelines:<40 mg/dL: Low HDL-cholesterol (major risk factor for CHD)>= 60 mg/dL: High HDL-cholesterol (negative risk factor for CHD)HDL-cholesterol is affected by a number of factors, e.g. smoking, exercise, hormones, sex and age. Serum or plasma cholesterol measurement (mass/volume)Ordered By: HEALTH ASSESSMENT on 03-14-2025 Cholesterol [Mass/Vol] 245 mg/dL High <201 [facility] Comment on above: Cholesterol level, D esirable <200 mg/dLBorderline high cholesterol 200-239 mg/dLHigh cholesterol >=240 mg/dLRecommendations of the NCEP Adult Treatment Panel for the following risk-cutoff thresholds for the [place] population. Serum or plasma urea nitroge n measurement (mass/volume)Ordered By: HEALTH ASSESSMENT on 03-14-2025 Urea nitrogen [Mass/Vol] 14 mg/dL 4-19 [facility] Serum or plasma uric acid me asurement (mass/volume)Ordered By: [facility] ASSESSMENT on 03-14-2025 Urate [Mass/Vol] 5.1 mg/dL 2.6-6.0 [facility] Comment on above: The drugs N-Acetylcy steine and Metamizole may falsely depress this assay. Sodium levelOrdered By: [facility] ASSESSMENT on 03-14-2025 Sodium [Moles/Vol] 139 mmol/L 133-145 [facility] Total proteinOrdered By: [facility] ASSESSMENT on 03-14-2025 Protein [Mass/Vol] 6.5 g/dL 5.9-8.4 [facility] Triglycerides measurementOrd ered By: HEALTH ASSESSMENT on 03-14-2025 Triglyceride [Mass/Vol] 142 mg/dL <199 [facility] Comment on above: The drugs N-Acetylcy steine and Metamizole may falsely depress this assay. Normal range: <150 mg/dLBorderline High: 150-199 mg/dLHigh: 200-499 mg/dLVery High: >500 mg/dL Urinalysis, Employeeon 03-14 BILIRUBIN URINE Negative Normal Negative [facility] Comment on above: Order Comment: Urine , Random Performed By: #### L 100.0200, L500.2900, L400.0100 #### [facility] [address] [place], [address] Clarity (U) Clear Normal Clear [facility] Comment on above: Order Comment: Urine , Random Performed By: #### L 100.0200, L500.2900, L400.0100 #### [facility] [address] [place], [address] Color (U) Yellow Normal Yellow [facility] Comment on above: Order Comment: Urine , Random Performed By: #### L 100.0200, L500.2900, L400.0100 #### [facility] [address] [place], [address] GLUCOSE, UR Normal Normal Normal [facility] Comment on above: Order Comment: Urine , Random Performed By: #### L 100.0200, L500.2900, L400.0100 #### [facility] [address] [place], [address] KETONE UR Negative Normal Negative [facility] Comment on above: Order Comment: Urine , Random Performed By: #### L 100.0200, L500.2900, L400.0100 #### [facility] [address] [place], [address] LEUK ESTERASE 100 /ul Abnormal Negative [facility] Comment on above: Order Comment: Urine , Random Performed By: #### L 100.0200, L500.2900, L400.0100 #### [facility] [address] [place], [address] Nitrite Ql (U) Negative Normal Negative [facility] Comment on above: Order Comment: Urine , Random Performed By: #### L 100.0200, L500.2900, L400.0100 #### [facility] [address] [place], [address] OCCULT BLOOD-UR 25 /ul Abnormal Negative [facility] Comment on above: Order Comment: Urine , Random Performed By: #### L 100.0200, L500.2900, L400.0100 #### [facility] [address] [place], [address] pH UR 6.5 Normal 5.0 - 8.0 [facility] Comment on above: Order Comment: Urine , Random Performed By: #### L 100.0200, L500.2900, L400.0100 #### [facility] [address] [place], [address] PROT DIPSTX 100 mg/dl Abnormal Negative [facility] Comment on above: Order Comment: Urine , Random Performed By: #### L 100.0200, L500.2900, L400.0100 #### [facility] [address] [place], [address] SP.GR. DIPSTX 1.015 Normal 1.002-1.030 [facility] Comment on above: Order Comment: Urine , Random Performed By: #### L 100.0200, L500.2900, L400.0100 #### [facility] [address] [place], [address] UROBILI Normal Normal Normal [facility] Comment on above: Order Comment: Urine , Random Performed By: #### L 100.0200, L500.2900, L400.0100 #### [facility] [address] [place], [address] Urine clarityOrdered By: [facility] ASSESSMENT on 03-14-2025 Clarity (U) Clear Clear [facility] Urine color determinationOrd ered By: HEALTH ASSESSMENT on 03-14-2025 Color (U) Yellow Yellow [facility] Urine glucose detectionOrder ed By: HEALTH ASSESSMENT on 03-14-2025 Glucose Ql (U) Normal mg/dl Normal [facility] Urine leukocyte esterase det ection by dipstickOrdered By: HEALTH ASSESSMENT on 03-14-2025 Leukocyte esterase Test strip Ql (U) 100 /ul High Negative [facility] Urine pHOrdered By: HEALTH A SSESSMENT on 03-14-2025 pH (U) 6.5 [pH] 5.0 - 8.0 [facility] Urine specific gravity measu rementOrdered By: HEALTH ASSESSMENT on 03-14-2025 Specific gravity (U) [Rel density] 1.015 1.002-1.030 [facility] Urine urobilinogen measureme ntOrdered By: HEALTH ASSESSMENT on 03-14-2025 Urobilinogen Ql (U) Normal mg/dl Normal [facility] White blood cell (WBC) count Ordered By: HEALTH ASSESSMENT on 03-14-2025 WBC (Bld) [#/Vol] 7.6 10*3/uL 4.4-11.0 [facility] Cyt[facility] Reporton [address] Cytology Report . Pathology Reports Accession: Collected Date/Time: Received Date/Time: Pathologist: [id number] 07/25/2024 10:33 EST 07/25/2024 18:[address] [facility] [address] Report SPECIMEN: Specimen Description: Liquid Prep [...] and evaluated with the assistance of the [employer] ThinPrep Test Imaging System. Pathology Reports Accession: Collected Date/Time: Received Date/Time: Pathologist: [id number] 07/25/2024 10:33 EST 07/25/2024 18:00 EST Electronically Signed by Pathology report verified by [facility] Screened by: [place] Electronically signed by Helga HORTA (ASCP) Sign-Out Date: 07/28/2024 14:40 Performing Lab: [facility], [address] [place] [address] Pathology Dept Disclaimer The Pap test is a screening test for cervical cancer. As evidenced by published data, it is subject to both inherent false negative and false positive results. Your patient's results should be interpreted in context with pertinent clinical history including gynecological examination. Normal [facility] HPVon 07-28-2024 HPV Interp Normal See Interp HPVN [facility] Comment on above: Order Comment: Order placed by AP_HPV_ORDER rule from [id number] Result Comment: High Risk HPV Typing: NEGATIVE [...] HPVN Performed By: #### H PV #### [place] [address] HPV Source Cervix Normal [facility] Comment on above: Order Comment: Order placed by AP_HPV_ORDER rule from [id number] Performed By: #### H PV #### [place] [address] LABORATORYOrdered By: Sommer Galvan on 07-25-2024 HPV [...] to be detected. Normal See Interp HPVN AH Auto Viro/Sero SS Specimen source Nom (Unsp spec) Cervix (07/25/24 10:33 AM) Normal AH Auto Viro/Sero SS SCRN MAMM (CAD)W/KAYE BILATo n 07-07-2024 SCRN MAMM (CAD)W/KAYE BILAT [facility] Imaging Services [address] [place] [address] SCRN MAMM (CAD)W/KAYE BILAT MR#: [id number] Acct: [id number] Name: BALDOMERO ARREOLA Rep #: [id number] : 1975 F 49 From: Sean gu MD PCP: Dr. Janet Klein MD Status: REG [facility] Study: SCRN MAMM (CAD)W/KAYE BILAT Date of Exam: 06/17 10/09 Exam# [id number] Ordering Dr: Janet Klein MD [id number] MAMMOGRAPHY - BILATERAL SCREENING REASON FOR EXAM: [...] delay biopsy of a clinically suspicious abnormality. [id number] Electronically Signed: Sean Haynes MD at 14:20 EST Reading Location ID and State: [facility] / [place] , Service support , CC: Dr. Janet Klein MD Supervisor Type Photography: Signed Normal [facility] HPVon 05-11-2019 HPV Interp Normal See Interp HPVN [facility] ([place]) Comment on above: Order Comment: Order placed by AP_HPV_ORDER rule from [id number] Result Comment: High Risk HPV Typing: NEGATIVE [...] HPVN Performed By: #### H PV #### [place] [address] HPV Source Cervix Normal [facility] ([place]) Comment on above: Order Comment: Order placed by AP_HPV_ORDER rule from [id number] Performed By: #### H PV #### [place] [address] [address] Reporton [address] Cytology Report . Pathology Reports Accession: Collected Date/Time: Received Date/Time: Pathologist: [id number] 05/05/2019 12:35 EDT 05/05/2019 18:[address] [facility] [address] Report SPECIMEN: Specimen Description: Liquid Prep w/ HPV Specimen: Cervical/Endocervical Screening or Diagnostic: Screening RELEVANT HISTORY: LMP: 01-20-17 Control: Yes [id number] SPECIMEN ADEQUACY: SATISFACTORY FOR EVALUATION ENDOCERVICAL/TRANSFORM ATIONAL ZONE COMPONENT ABSENT/INSUFFICIENT INTERPRETATION/RESULTS : NEGATIVE FOR INTRAEPITHELIAL LESION OR MALIGNANCY ADJUNCTIVE TESTING: HIGH RISK HPV DNA TESTING ORDERED, REPORT TO FOLLOW UNDER SEPARATE COVER COMMENT: This Pap Test was successfully processed and evaluated with the assistance of the [employer] ThinPrep Test Imaging System. Electronically Signed by Pathology report verified by [facility] Screened by: NELIDA Electronically signed by Tatyaan HORTA (ASCP) Sign-Out Date: 05/10/2019 11:36 Performing Lab: [address] Disclaimer The Pap test is a screening test for cervical cancer. As evidenced by published data, it is subject to both inherent false negative and false positive results. Your patient's results should be interpreted in context with pertinent clinical history including gynecological examination. Normal [facility] ([place]) Comment on above: Performed By: #### G YCR #### [facility] [address] [place] [address] Microbiology: Culture, R/O S trep Aon 12-28-[address] [facility] Work Phone: Microbiology: (P) Culture, R /O Strep Aon 12-25-2016 GE use only - for LinkLogic import when terms are not otherwise specified . Invalid Interpretation Code [facility] Work Phone: Office Visit: UC: Bronchitis , pharyngitison 12-24-2016 Documentation of current medications (procedure) Done Invalid Interpretation Code [facility] Work Phone: Protein mass conc Done [facility] Work Phone: Tobacco smoking status NHIS Never [facility] Work Phone: Tobacco smoking status [place] Never smoker [facility] Work Phone: Tobacco use CPHS Never smoker Invalid Interpretation Code [facility] Work Phone: Vital Signs Date Time Vital Sign Value Performing Clinician Faci lity 12-24-2016 14:37-0400 BMI (Body Mass Index) 20.2 kg/m2 Thao Davistommie TAPIA [facility] Work Phone: 12-24-2016 14:37-0400 Body Temperature 98.6 [degF] Thao Avila REGINA [facility] Work Phone: 12-24-2016 14:37-0400 BP Diastolic 76 mm[Hg] Thao Avila ICU REGISTERED NURSE [facility] Work Phone: 12-24-2016 14:37-0400 BP Systolic 108 mm[Hg] Thao Davistommie JEROMEN [facility] Work Phone: 12-24-2016 14:37-0400 Height 170.18 cm Thao Davistommie [address] [facility] Work Phone: 12-24-2016 14:37-0400 Pulse (Heart Rate) 97 /min Thao Davistommie TAPIA [facility] Work Phone: 12-24-2016 14:37-0400 Pulse Oximetry 98 % Thao Avila LPN [facility] Work Phone: 12-24-2016 14:37-0400 Respiratory Rate 12 /min Thao Avila LPN [facility] Work Phone: 12-24-2016 14:37-0400 Weight 58.51 kg Thao Avila LPN [facility] Work Phone: Encounters Encounter Date Encounter Type Care Provider Facility Start: 07-17-2025 ambulatory Everardo Estrada Facility :[facility] Start: 03-14-2025 End: 03-14-[address] Janet Klein MD Work Phone: -Laboratory [facility] Start: 03-14-2025 End: 03-14-[address] Janet Klein MD -Laboratory [facility] Start: 03-14-2025 Registered Referred HE[employer] RISK [employer] -Employee [employer] Start: 03-14-2025 ambulatory Janet Klein Facilit y:[facility] Start: 03-14-2025 End: 03-14-2025 ambulatory Janet Klein Facility:[facility] Start: 07-25-2024 End: 07-29-2024 ambulatory JANET KLEIN MD Facility:[facility] Start: 07-25-2024 End: 07-29-2024 Outreach Lab BRITTANI PRASAD MD [facility] Start: 07-07-2024 End: 07-07-2024 ambulatory Janet Klein Facility:[facility] Start: 07-02-2023 End: 07-02-2023 ambulatory [facility] Work Phone: Start: 07-02-2023 End: 07-02-2023 Patient encounter procedure [facility] Work Phone: Start: 06-30-2022 End: 06-30-2022 ambulatory [facility] Work Phone: Start: 06-30-2022 End: 06-30-2022 Patient encounter procedure [facility] Procedures Date Procedure Procedure Detail Performing Clinician Start: 03-14-2025 Serum inorganic phos phate measurement Dr. Jaent Klein MD Work Phone: Start: 03-14-2025 Urnls dip stick/tabl et reagent auto microscopy Dr. Janet Klein MD Work Phone: Start: 07-02-2023 Screening mammography Start: 06-30-2022 Screening mammography Start: 12-24-2016 End: 12-24-2016 [facility] streptococcus group a Khurram BETTENCOURT Work Phone: Start: 12-24-2016 End: 12-24-2016 Rapid strep test Khurram BETTENCOURT Work Phone: section BRITTANI Bloom MD Ligation of fallopian tube A ALEXANDRA PRASAD MD Plan of Treatment Date Care Activity Detail Author Start: 12-24-2016 End: 12-24-2016 Appointment Appointment [facility] Work Phone: Start: 12-24-2016 End: 12-24-2016 Streptococcus.beta-hemol ytic [Presence] in Throat by Organism specific culture *Culture, R/O Strep A Swab [facility] Work Phone: Patient Education ACUTE%20BRONCHITIS [facility] Work Phone: Immunizations Immunization Date Immunization Notes Care Provider Karen snyder 05-17-2024 influenza, seasonal, injectable, preservative free Dr. Janet Klein MD Work Phone: [facility] 06-03-2023 influenza, injectabl e, quadrivalent, preservative free [facility] 05-18-2022 influenza, injectabl e, quadrivalent, preservative free [facility] 05-18-2022 influenza, seasonal, injectable [facility] Work Phone: 06-27-2021 Covid (Moderna) [facility] 05-21-2021 influenza, injectabl e, quadrivalent, preservative free [facility] 05-21-2021 influenza, seasonal, injectable [facility] Work Phone: 09-18-2020 Covid (Moderna) [facility] 08-21-2020 Covid (Moderna) [facility] 05-14-2020 influenza, injectabl e, quadrivalent, preservative free [facility] 05-14-2020 influenza, seasonal, injectable [facility] Work Phone: 05-11-2019 influenza, injectabl e, quadrivalent, preservative free [facility] 05-11-2019 influenza, seasonal, injectable [facility] Work Phone: 05-30-2018 influenza, injectabl e, quadrivalent, preservative free [facility] 05-30-2018 influenza, seasonal, injectable [facility] Work Phone: 05-12-2017 influenza, injectabl e, quadrivalent, preservative free [facility] 05-12-2017 influenza, seasonal, injectable [facility] Work Phone: 05-15-2016 influenza, injectabl e, quadrivalent, preservative free [facility] 05-15-2016 influenza, seasonal, injectable [facility] Work Phone: 05-16-2015 influenza, injectabl e, quadrivalent, preservative free [facility] 05-16-2015 influenza, seasonal, injectable [facility] Work Phone: 05-16-2014 influenza, injectabl e, quadrivalent, preservative free [facility] 05-16-2014 influenza, seasonal, injectable [facility] Work Phone: 06-15-2013 Influenza virus vaccine [facility] Payers Date Payer Category Payer Self-pay [id number] 2024 Unknown [id number] 2016 Unknown [id number] 1975 Unknown [id number] [id number] Unknown [id number] [id number] Unknown [id number] [id number] [id number] Unknown [id number] 2.16.8 [id number] Unknown [id number] 2.16.8 [id number] Social History Date Type Detail Facility Tobacco smoking stat [facility] Unknown if ever smoked [facility] Work Phone: Start: 1975 Sex Assigned At Female [facility] Start: 12-16-2020 Tobacco smoking status Never s moked tobacco (finding) [facility] Tobacco smoking stat [facility] Unknown if ever smoked [facility] Work Phone: Clinical Notes 07-28-2024 Note Date & Type Note Facility 07-28-2024 Note This Pap Test was successfully processed and evaluated with the assistance of the [employer] ThinPrep Test Imaging System. [facility] 07-28-2024 Note This Pap Test was successfully processed and evaluated with the assistance of the [employer] ThinPrep Test Imaging System. [facility] 07-28-2024 Note This Pap Test was successfully processed and evaluated with the assistance of the [employer] ThinPrep Test Imaging System. [facility] 07-28-2024 Note This Pap Test was successfully processed and evaluated with the assistance of the [employer] ThinPrep Test Imaging System. [facility] 07-28-2024 Note This Pap Test was successfully processed and evaluated with the assistance of the [employer] ThinPrep Test Imaging System. [facility] 07-28-2024 Note This Pap Test was successfully processed and evaluated with the assistance of the [employer] ThinPrep Test Imaging System. [facility] 07-28-2024 Note This Pap Test was successfully processed and evaluated with the assistance of the [employer] ThinPrep Test Imaging System. [facility] 07-28-2024 Note This Pap Test was successfully processed and evaluated with the assistance of the [employer] ThinPrep Test Imaging System. [facility] Evaluation + Plan note Future Appointments Appointment Date:08/22/2024 01:00:00 PM Scheduled Provider:LUZ ANDERSON MD Location:[facility] Appointment Type:[facility] Evaluation note No assessment inform ation available [facility] Work Phone: Hospital course Narrative No data available for this section [facility] Hospital Discharge instructions No data available for this section [facility] Reason for referral (narrative) No reason for referral information available [facility] Work Phone: Summary Purpose Family History No Family History Records Found No data available for this section No Family History Records FoundNo Family History Records Found Advance Directives No Advanced Directives Records FoundNo Advanced Directives Records FoundNo Advanced Directives Records Found Chief Complaint and Reason for Visit Chief Complaint SCREENING Chief Complaint SCREENING Chief Complaint Admit Date [employer] March 14, 2025 7:40 am Additional Source Comments INFORMATION SOURCE (unrecogn ized section and content) DATE CREATED AUTHOR 05/16/2019 [facility] ([place]) DATE CREATED AUTHOR AUTHOR'S ORGANIZ ATION 08/09/2024 [facility] DATE CREATED AUTHOR AUTHOR'S ORGANIZ ATION 05/20/2025 [facility] Goals (unrecognized section and content) Goals may be documented in a n alternate sectionGoals may be documented in an alternate section No data available for this sectionGoals may be documented in an alternate section Care Teams (unrecognized sec tion and content) Team Status: Active Member Role Status Dates Dr. Janet Serna MD Family Provider Active Dr. Janet Klein MD Primary Care Provider Active Team Status: Inactive Member Role Status Dates Dr. Janet Klein MD Primary Care Provider Active Dr. Brittani Prasad MD Attending Provider, Referring Pr ovider Active Team Status: Active Member Role/Relationship Status Dates Dr. Janet Serna MD Family Provider Active Dr. Janet Klein MD Primary Care Provider Active Team Status: Active Member Role/Relationship Status Dates Dr. Janet Klein MD Primary Care Provider Active Start: March 14, 2025 Health Risk Assessment Attending Provider Active Start: March 14, 2025 Health Risk Assessment Referring Provider Active Start: March 14, 2025 Team Status: Inactive Member Role/Relationship Status Dates Dr. Janet Klein MD Primary Care Provider Active Start: March 14, 2025 End: March 14, 2025 Dr. Janet Klein MD Attending Provider Active Start: March 14, 2025 End: March 14, 2025 Dr. Janet Klein MD Referring Provider Active Start: March 14, 2025 End: March 14, 2025 FOR RECORDS PERTAINING TO PATIENTS WHO ARE [...] BE BASED ON THE PRIMARY CLINICAL RECORDS. [employer] provides no warranty or guarantee of the accuracy or completeness of information in this document.
[2025-07-17] MEDS: Lactated Ringers 1,000 ML 15 ML IV (05:55)
--- NOTE | 2025-07-17 06:30 | PCM.PRE.AN2 ---
ASA Classification* ASA Classification ASA Classification: 1 Assessment & Plan Anesthesia* Anesthesia Assessment Anesthesia Assessment: Discussed sedation and/or anesthesia options, risks, benefits, and alternatives with patient/parents/legal guardian/POA. Questions invited. The patient/parents/legal guardian/POA seems to understand and agrees to proceed with anesthesia plan. Reviewed the physical assessment, medical history, allergy history and patient home medications list prior to surgery/procedure/anesthetic and documented any changes. Performed airway and anesthesia risk assessments. Anesthesia Type Anesthesia Type: MAC History Source History Obtained from:: Patient and Chart Anesthesia Focused Assessment* Temperature: 98.3 F Pulse Rate: 96 Blood Pressure: 118/79 Respiratory Rate: 16 Pulse Ox: 100 Airway Assessment Mouth opens: >3 cm Mallampati Score: II Teeth Condition: Intact Neck Range of motion (ROM): Full ROM Labs Anesthesia Preop lab: CBC WBC, (4.4-11.0) 7.6 K/mm3 03/14/25, 07:54 RBC, (4.2-5.4) 3.92 M/mm3 L 03/14/25, 07:54 Hgb, (12.0-15.0) 12.6 g/dL 03/14/25, 07:54 Hct, (37-47) 37.2 % 03/14/25, 07:54 Plt Count, (150-450) 248 K/mm3 03/14/25, 07:54 CHEMISTRY Potassium, (3.3-5.1) 4.5 mmol/L 03/14/25, 07:54 Sodium, (133-145) 139 mmol/L 03/14/25, 07:54 Phosphorus, (2.7-4.5) 3.4 mg/dL 03/14/25, 07:54 BUN, (4-19) 14 mg/dL 03/14/25, 07:54 Creatinine, (0.70-1.20) 0.88 mg/dL 03/14/25, 07:54 Glucose, (70-99) 108 mg/dL H 03/14/25, 07:54 TSH, (0.358-3.74) 1.74 uIU/mL 02/29/20, 15:57 COAG Pre-Assessment Diagnosis/Proposed Procedure Planned Operative Procedure(s): CSCOPE Anesthesia History 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 When Was Last Pacemaker Check QUESTION #4 FULL TEXT: You/Your Family Experience fever (hyperthermia) with Anesthesia Last Oral Intake Last Oral intake: Last Oral Intake NPO since 22:00 07/17/25 05:45 Meds taken in AM with sips of No 07/17/25 05:45 water? 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 Female Yes 07/11/25 10:47 HX of Motion Sickness Yes 07/11/25 10:47 HX of N/V After Surgery No 07/11/25 10:47 Non-Smoker Yes 07/11/25 10:47 Duration of Surgery greater No 07/11/25 10:47 than 60 minutes Number of Risk Factors 3 07/11/25 10:47 PONV Score Moderate Risk 07/11/25 10:47 Height & Weight Height & Weight: Anesthesia: Height & Weight Height 5 ft 7 in 07/17/25 05:45 Weight: 65 kg 07/17/25 05:45 Body Mass Index (BMI) 22.4 07/17/25 05:45 Respiratory Assessment Respiratory Assessment - adult school teacher: Respiratory Tract Infection Hx - adult school teacher Hx Respiratory Tract Infection No 07/11/25 10:47 STOP Sleep Apnea STOP Sleep Apnea - adult school teacher: STOP Sleep Apnea - adult school teacher Hx Hypertension No 07/11/25 10:47 Hx Sleep Apnea No 07/11/25 10:47 CPAP BIPAP Do you snore loudly (louder No 07/11/25 10:47 than talking or can be heard Do you often feel tired/ No 07/11/25 10:47 fatigued/ sleepy during daytime? Has anyone observed you stop No 07/11/25 10:47 breathing during sleep? STOP Results Negative 07/11/25 10:47 QUESTION #5 FULL TEXT : Do you snore loudly (louder than talking or can be heard through closed doors)? 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 Specify any problems Hx of Preganancy in last 3 N/A 07/11/25 10:47 Months Nurse Filling Out Transfusion NBUCHER 07/11/25 10:47 & Questions: Date: 07/11/25 07/11/25 10:47 Time: 10:48 07/11/25 10:47 Patient unable to answer at this time (ie. confused, unrespo /Reproduction History /Reproductive History - adult school teacher: /Reproductive Hx- adult school teacher Hx Now No 07/11/25 10:47 Gestational Age (in weeks): EDC: Hx Hx Para Hx Section SAB No 07/11/25 10:47 Does the father of the baby or his family experience fever w Father of the baby Malignant Hypertension history comment Active Medications Active Medications: Current Medications Generic Name Dose Route Start Last Admin Trade Name Freq PRN Reason Stop Dose Admin Lactated Ringer's 1,000 mls @ 15 mls/hr 07/17/25 06:00 07/17/25 05:55 IV 15 mls/hr .Q48H SONIDO Administration PFSH Medical History Non-smoker Home Medications Medication Instructions Recorded Last Taken Type drospirenone 3 mg-ethinyl 1 tab PO DAILY 07/11/25 07/16/25 History estradiol 0.02 mg tablet multivitamin (Daily Multi-Vitamin 1 tab PO DAILY 07/11/25 Unknown History tablet) Allergy/AdvReac Type Severity Reaction Status Date / Time No Known Allergies Allergy Verified 07/17/25 05:54 Surgical History History of tubal ligation History of Social History Smoking Status: Never smoker Review of Systems (Anesthesia) ROS Narrative System reviewed and no additional complaints, except as documented.
--- NOTE | 2025-07-17 06:42 | PCM.HP.STD ---
HPI - General General Date of Admission: 07/17/25 Date of Service: 07/17/25 Chief Complaint: Screening colonoscopy HPI Eleazar ARREOLA, is a 50 F who presents [today for screening colonoscopy. She does not have any abdominal pain, cramping, chest pain or shortness of breath. She never had a colonoscopy in the past. Overall she is in very good health.] [facility] Medical History Non-smoker Home Medications Medication Instructions Recorded Last Taken Type drospirenone 3 mg-ethinyl 1 tab PO DAILY 07/11/25 07/16/25 History estradiol 0.02 mg tablet multivitamin (Daily Multi-Vitamin 1 tab PO DAILY 07/11/25 Unknown History tablet) Allergy/AdvReac Type Severity Reaction Status Date / Time No Known Allergies Allergy Verified 07/17/25 05:54 Surgical History History of tubal ligation History of ROS Constitutional Constitutional: Denies fatigue, fever(s), poor appetite, weight gain or weight loss Gastrointestinal Gastrointestinal: Denies belching, bloating, change in bowel habits, change in stool character, chewing difficulty, coffee ground emesis, constipation, cramping, diarrhea, dyspepsia, dysphagia, early satiety, excessive flatus, fecal incontinence, heartburn, hematemesis, hematochezia, hemorrhoids, loose stools, melena, nausea, odynophagia, rectal bleeding, tenesmus, vomiting or weight changes Vital Signs Vital Signs Vital Signs: 07/17/25 05:45 07/17/25 05:45 07/17/25 06:38 Temperature 98.3 F 98.3 F Temperature Source Temporal Pulse Rate 96 96 Respiratory Rate 16 16 Respiratory Pattern Normal Blood Pressure 118/79 118/79 Blood Pressure Mean 92 Blood Pressure Source Monitor Blood Pressure Position Sitting Blood Pressure Location Left Arm Pulse Ox 100 100 Oxygen Delivery Method Room Air Weight Weight: 143 lb 4.807 oz Body Mass Index (BMI) 22.4 Physical Exam Const alert, oriented x3, no apparent distress and healthy appearing General Appearance: cooperative GI normal to inspection, nondistended, normoactive bowel sounds, soft to palpation, non-tender and non-distended Percussion: normal to percussion Rectal Exam: deferred Assessment & Plan Assessment/Plan (1) Normal screening colonoscopy: PLAN: She was explained alternatives, risk and benefits cannot withstanding bleeding, infection, sepsis, perforation, need for surgery . She will have an ASA of 3.
--- NOTE | 2025-07-17 07:18 | PCM.POST.ANE ---
Anesthesia: Postop Eval I Current Vital Signs Temperature: 97.1 F Pulse Rate: 71 Blood Pressure: 95/70 Respiratory Rate: 16 Pulse Ox: 97 Oxygen Delivery Method: Room Air Assessment Airway patent: Yes Spontaneous unlabored respirations: Yes Mental status: Awake and Calm nausea: No Vomiting: No Anesthesia Complication: No Fluid Hydration Crystalloid volume administer (ml): 600 Total IV fluid infused: 600 Progress Note Anesthesia document: Postop Eval 1 completed: Yes
--- NOTE | 2025-07-17 07:21 | OP.COLON_ITS ---
Patient Name: Nasrin Azul Procedure Date: 07/17/2025 6:19 AM Date of : 1975 Age: 50 Procedure: Colonoscopy Indications: Screening for colorectal malignant neoplasm Providers: DO Balaji Luciano MD: Zafar Hoffmann Medicines: Monitored Anesthesia Care Patient Profile: This is a 50 year old female. Refer to note in patient chart for documentation of history and physical. Last Colonoscopy: none. The patient's first colonoscopy is today. Complications: No immediate complications. Procedure: Pre-Anesthesia Assessment: - Prior to the procedure, a History and Physical was performed, and patient medications and allergies were reviewed. The patient is competent. The risks and benefits of the procedure and the sedation options and risks were discussed with the patient. All questions were answered and informed consent was obtained. Patient identification and proposed procedure were verified by the physician in the pre-procedure area. Mental Status Examination: alert and oriented. Airway Examination: normal oropharyngeal airway and neck mobility. Respiratory Examination: clear to auscultation. CV Examination: normal. ASA Grade Assessment: II - A patient with mild systemic disease. After reviewing the risks and benefits, the patient was deemed in satisfactory condition to undergo the procedure. The anesthesia plan was to use monitored anesthesia care (MAC). Immediately prior to administration of medications, the patient was re-assessed for adequacy to receive sedatives. The heart rate, respiratory rate, oxygen saturations, blood pressure, adequacy of pulmonary ventilation, and response to care were monitored throughout the procedure. The physical status of the patient was re-assessed after the procedure. After I obtained informed consent, the scope was passed under direct vision. Throughout the procedure, the patient's blood pressure, pulse, and oxygen saturations were monitored continuously. The Colonoscope was introduced through the anus and advanced to the cecum, identified by appendiceal orifice and ileocecal valve. The colonoscopy was performed without difficulty. The patient tolerated the procedure well. The quality of the bowel preparation was good. The ileocecal valve, appendiceal orifice, and rectum were photographed. Scope In: 6:56:19 AM Scope Withdrawal Time 0 hours 9 minutes 6 seconds Scope Out: 7:11:52 AM Total Procedure Duration Time 0 hours 15 minutes 33 seconds Findings: The perianal and digital rectal examinations were normal. The colon (entire examined portion) appeared normal. No additional abnormalities were found on retroflexion. Impression: - The entire examined colon is normal. - No specimens collected. Recommendation: - Discharge patient to home. - Resume previous diet. - Continue present medications. - Repeat colonoscopy in 10 years for screening purposes. Procedure Code(s): --- Professional --- G0121, Colorectal cancer screening; colonoscopy on individual not meeting criteria for high risk CPT copyright 2021 [employer]. All rights reserved. The codes documented in this report are preliminary and upon tape sewing machine operator review may be revised to meet current compliance requirements. Everardo Estrada DO 07/17/2025 7:20:51 AM This report has been signed electronically. Number of Addenda: 0 Note Initiated On: 07/17/2025 6:19 AM
--- NOTE | 2025-07-17 07:22 | OP.PROVAT_ITS ---
07/17/2025 Zafar Hoffmann [address] [place] [address] Re : Colonoscopy procedure for Nasrin Azul Dear Dr. Hoffmann This procedure was performed on Thursday, July 17, 2025. My impressions and recommendations are as follows: Impressions : - The entire examined colon is normal. - No specimens collected. Recommendations : - Discharge patient to home. - Resume previous diet. - Continue present medications. - Repeat colonoscopy in 10 years for screening purposes. My findings are described in the full procedure note, which is enclosed. If I can be of further assistance, please feel free to contact me at . Sincerely, Everardo Estrada, 07/17/2025 7:20:51 AM This report has been signed electronically.
--- NOTE | 2025-07-17 10:40 | PCM.POSTANE2 ---
Anesthesia Postop Eval I Sum Postop Eval Completion status Anesthesia document: Postop Eval 1 completed: Yes Anesthesia Postop Eval I Summary Anesthesia Postop Eval I Summary: Anesthesia Postop Eval I: Assessment Summary Airway patent Yes 07/17/25 07:19 [email or web address] Spontaneous unlabored Yes 07/17/25 07:19 [email or web address] respirations Mental status Awake,Calm 07/17/25 07:19 [email or web address] nausea No 07/17/25 07:19 [email or web address] Vomiting No 07/17/25 07:19 [email or web address] Anesthesia Postop Eval I: Fluid Summary Crystalloid volume administer 600 07/17/25 07:19 [email or web address] (ml) Colloids volume administered ( ml) Blood Product volume administered (ml) Total IV fluid infused 600 07/17/25 07:19 [email or web address] Anesthesia Postop Eval I: Summary Notes Anesthesia Complication No 07/17/25 07:19 [email or web address] Anesthesia Complication Comment: Post-operative progress note Anesthesia: Postop Eval II Evaluation Mental status: Awake and Calm Pain Level: 0 nausea: No Vomiting: No Complications Anesthesia Complication: No
== END 2025-07-17 07:39 | disposition home or self-care (01) ==
LOC: EN 05:22 → AC 05:22
PROVIDERS: PCP Family Medicine; Referring Provider Family Medicine; Visit Provider Internal Medicine Gastroenterology
PROC: 0DJD8ZZ Inspection of Lower Intestinal Tract, Via Natural or Artificial Opening Endoscopic (ICD-10-PCS; CPT 45378; principal; 2025-07-17 06:25)
DX: Z12.11 Encounter for screening for malignant neoplasm of colon (principal); Z98.51 Tubal ligation status
CPT/HCPCS: 45378; J2405